=== PATIENT | female | born 1970 | race Caucasian/White ===

== ENCOUNTER 2016-11-02 13:29 | Emergency (ER) ==
[2016-11-02 13:45] VITALS: BP 165/103
[2016-11-02] MEDS ORDERED: ASPIRIN PO STA (13:45)
[2016-11-02 13:53] LABS: MANUAL DIFF NEEDED? NO
[2016-11-02 14:07] LABS: BASO% 0.3 % (0.0-0.8); EOS% 2.6 % (0.0-10.0); HEMATOCRIT 38.6 % (37.0-47.0); HEMOGLOBIN 12.9 g/dL (12.0-16.0); IMM GRAN# 0.03 X1000 (0.0-0.04); IMM GRAN% 0.3 % (0.0-0.5); LYMPH# 3.52 X1000 (1.2-3.4); MCH 30.6 PG (27-31); MCHC 33.4 g/dL (33-37); MCV 91.7 FL (81-99); MPV 10.3 FL (7.4-10.4); NEUT% 58.8 % (42.2-75.2); PLT 279 X1000 (130-400); RBC 4.21 XMIL (4.2-5.4)
[2016-11-02 14:17] LABS: INR 0.93; PROTIME 9.8 Seconds (9.2-11.7); PTT 26.1 Seconds (22.0-36.0)
--- NOTE | 2016-11-02 14:26 | ED EKG INTERP ---
EKG Interpretation - EKG Time of EKG reading by physician:: 13:45 EKG Read and Signed by:: Javy Hwang EKG Interpretation (*Must complete 3 of following elements*): Abnormal Rate: 75 (nonspecific ST abnormality) Rhythm: NSR Attestation - Scribe Verification/Attestation Scribe:: Regina Vergara Acting as Scribe for:: Javy Hwang Scribe documention review:: This chart was documented by a scribe and accurately reflects the service the provider performed and the decisions made by the provider.
[2016-11-02 14:30] LABS: AGAP 13; ALBUMIN 3.9 g/dL (3.5-5.0); ALKALINE PHOSPHATASE 75 U/L (32-104); BUN 9 mg/dL (8-22); CALCIUM 10.1 mg/dL (8.8-10.2); CHLORIDE 99 mmol/L (98-107); COSMO 277; GOT 22 U/L (10-30); GPT 20 U/L (10-36); MAGNESIUM 1.9 mg/dL (1.5-2.7); POTASSIUM 3.5 mmol/L (3.5-5.1); SODIUM 139 mmol/L (136-145); TCO2 27 mmol/L (25-35); TOTAL BILIRUBIN 0.32 mg/dL (0.20-1.00); TOTAL PROTEIN 7.1 g/dL (6.3-8.3)
--- NOTE | 2016-11-02 14:30 | Diag Imaging Result Document ---
PROCEDURE NAME: CHEST-2 VIEWS - 11/02/2016 TWO VIEWS OF THE CHEST: FINDINGS: There is no evidence of acute cardiac or pulmonary disease. Compared to 02/29/2016, there has been no significant change in the appearance of the chest. IMPRESSION: No evidence of acute disease.
[2016-11-02 14:33] LABS: CK PROFILE 259 U/L (24-173)
[2016-11-02 14:55] LABS: CK INDEX 0.8 (0.0-2.5); CK-MB 1.98 ng/mL (0.0-5.0)
--- NOTE | 2016-11-04 07:59 | EKG Report ---
Test Performed on : 11/02/2016 1:39:04 PM Test Reason : re-ordered/unable to attach previous order Blood Pressure : / mmHG Vent. Rate : 075 BPM Atrial Rate : 075 BPM P-R Int : 136 ms QRS Dur : 082 ms QT Int : 388 ms P-R-T Axes : 045 068 070 degrees QTc Int : 433 ms Normal sinus rhythm. Nonspecific ST abnormality Abnormal ECG When compared with ECG of 29-FEB-2016 12:54, No significant change was found Unconfirmed Result
--- NOTE | 2016-11-04 08:24 | EKG Report ---
Test Performed on : 11/02/2016 4:19:23 PM Test Reason : Chest Pain Blood Pressure : / mmHG Vent. Rate : 072 BPM Atrial Rate : 072 BPM P-R Int : 136 ms QRS Dur : 070 ms QT Int : 386 ms P-R-T Axes : 060 063 079 degrees QTc Int : 422 ms Normal sinus rhythm. Low voltage QRS Nonspecific ST abnormality Abnormal ECG When compared with ECG of 02-NOV-2016 13:39, (Unconfirmed) No significant change was found Unconfirmed Result
== END 2016-11-02 16:10 | disposition left against medical advice (07) ==
LOC: ED 13:29
DX: R07.89 Other chest pain (principal); M79.601 Pain in right arm; R94.31 Abnormal electrocardiogram [ECG] [EKG]
CPT/HCPCS: 71020; 80053; 82550; 82553; 83735; 83880; 84484; 85025; 85379; 85610; 85730; 93005

== ENCOUNTER 2016-11-02 16:20 | Observation (INO) ==
[2016-11-02] MEDS ORDERED: PHENERGAN ONE (16:33)
--- NOTE | 2016-11-02 16:33 | PROVIDER DOCUMENTATION ---
Addendum entered and electronically signed by Linda Alberto Scribe 19:48: Additional Progress - ADDITIONAL XRAY's XRAY Study: Chest Impression: Normal Xray Interpretation: No acute disease per radiologist Original Note: HPI-Chest Pain - General Source: patient - History of Present Illness-CP Location: reports: epigastric Chest Pain Radiation: reports: arms Quality of Pain: reports: sharp Onset/Duration: this morning Associated Symptoms: reports: denies symptoms Prior Chest Pain/Cardiac Workup: reports: stress test <Chayito Washington - Last Filed: 11/02/16 17:59> - General Source: patient (Patient is a 46 year old white female with history of hyperlipidemia, tobacco abuse, and strong family history of VA (mother with VA in her 30's), who presents by EMS complaining of substernal chest pain "knot" since 12 noon today. Patient initially seen by Dr. Mcnulty who gave patient 4 baby aspirin. Patient reports that her chest pain was initially relieved with SL nitroglycerin. Chest pain is currently 2/10 with radiation to both arms. Initial troponin is negative and EKG shows no ischemic changes.) <Hiram Carmen - Last Filed: 11/02/16 18:19> - General Chief Complaint: Chest Pain Stated Complaint: chest Time Seen by Provider: 11/02/16 16:33 Allergies/Adverse Reactions: Patient Allergies Allergy/AdvReac Type Severity Reaction Status Date / Time Egg Derived Allergy VOMITING Verified 11/02/16 16:27 ciprofloxacin [From Cipro] AdvReac VOMITING Verified 11/02/16 16:27 ciprofloxacin HCl * AdvReac VOMITING Verified 11/02/16 16:27 [From Cipro] clarithromycin [From Biaxin] AdvReac VOMITING Verified 11/02/16 16:27 codeine AdvReac VOMITING Verified 11/02/16 16:27 hydrocodone AdvReac VOMITING Verified 11/02/16 16:27 levofloxacin [From Levaquin] AdvReac VOMITING Verified 11/02/16 16:27 Penicillins AdvReac VOMITING Verified 11/02/16 16:27 Sulfa (Sulfonamide AdvReac VOMITING Verified 11/02/16 16:27 Antibiotics) Home Medications: Home Medication List Medication Instructions Recorded Confirmed Last Taken Type Cephalexin [Keflex] 500 mg PO BID 06/05/07/16 05/07/16 History Levothyroxine [Synthroid] 50 microgm PO DAILY 02/29/16 05/07/16 1 Day Ago History Clindamycin HCl 300 mg PO Q8HR #28 capsule 05/07/16 Unknown Rx Metronidazole [Flagyl] 500 mg PO TID #20 tablet 05/07/16 Unknown Rx Promethazine [Phenergan] 1 - 2 tab PO Q6H PRN PRN #18 tablet 05/07/16 Unknown Rx Tramadol [Ultram] 50 mg PO Q6H PRN PRN #30 tablet 05/07/16 Unknown Rx - History of Present Illness-CP Nature of Presenting Problem: 46 yo F presents to the ER with complaint of chest pain, epigastric that radiates to her bilat arms. Had a similar pain yesterday. Has been seen at the heart center and was seen at [facility] today. Has a family hx of heart disease. Has had an echo and GXT done last year and had "normal" results. Has a hx of similar pain, states no triggers or relievers of the pain. (Chayito Washington) Review of Systems - Adult - REVIEW OF SYSTEMS - ADULT Constitutional: denies: chills, fever Eyes: reports: no symptoms reported Ears, Nose, Mouth & Throat: reports: no symptoms reported Cardiovascular: reports: chest pain. denies: palpitations Respiratory: denies: cough, shortness of breath Gastrointestinal: denies: diarrhea, nausea, vomiting Genitourinary: reports: no symptoms reported Musculoskeletal: reports: no symptoms reported Integumentary: reports: no symptoms reported Neurological: reports: no symptoms reported Psychiatric: reports: no symptoms reported Endocrine: reports: no symptoms reported Hematologic/Lymphatic: reports: no symptoms reported Allergic/Immunologic: reports: no symptoms reported All Other Systems: Reviewed and Negative <Chayito Washington - Last Filed: 11/02/16 17:59> Past History - Adult - PAST MEDICAL HISTORY-ADULT Review of Records: reports: Nursing Assessment Review, Medications Reviewed Major Childhood Illnesses: reports: denies history Gastrointestinal: reports: GERD Musculoskeletal: reports: arthritis (gout) Endocrine/Immune: reports: thyroid disorder - PRIOR SURGERIES/PROCEDURES Surgical/Procedure History: reports: cholecystectomy, hysterectomy, BTL, other ( left breast) - IMMUNIZATION STATUS Childhood Immunizations: See Nurse Assessment Flu Vaccine: See Nurse Assessment - FAMILY HISTORY Family History: CAD under 55yo - SOCIAL HISTORY Smoking: cigarettes Provider spent 3-5 mins advising pt. on dangers of tobacco.: Discussed manners to quit use, and f/u contacts for add'l counseling. <Chayito Washington - Last Filed: 11/02/16 17:59> Physical Exam-General - PHYSICAL EXAM-ADULT Initial Vital Signs Reviewed: Yes - CONSTITUTIONAL General Appearance: alert, no apparent distress - EYES Eyes: PERRL/EOMI, pink conjunctivae - HEAD, EARS, NOSE, MOUTH & THROAT HENMT: normocephalic/atraumatic, normal ENT inspection - NECK Neck: supple, normal inspection - RESPIRATORY Respiratory: no respiratory distress, no accessory muscle use - CARDIOVASCULAR Cardiovascular: normal peripheral pulses, regular rate, rhythm - MUSCULOSKELETAL Back Exam: no CVA tenderness, no vertebral tenderness Extremity: normal gait, normal inspection - SKIN Integumentary: normal color, warm/dry - NEUROLOGIC Neurologic: grossly normal, no motor/sensory deficits - PSYCHIATRIC Psych/Mental Status: normal mood/affect, normal thought content, normal thought process, oriented x 3 <PadminiChayito - Last Filed: 11/02/16 17:59> Progress - EKG 1 Time of EKG reading by physician:: 16:19 EKG Read and Signed by:: Hussein Bower EKG Interpretation (*Must complete 3 of following elements*): Abnormal Rate: 72 Rhythm: normal sinus rhythm Somers: normal QRS: other (low voltage) IA Interval: normal ST Wave: non-specific ST changes - CHANGE OF SHIFT REPORT (ED Provider) Report Given and Care Transferred to:: Dr. Carmen Time of Transfer: 17:59 Items Pending: Labs, XRAY Results <Chayito Washington - Last Filed: 11/02/16 17:59> - EKG 1 Time of EKG reading by physician:: 16:19 EKG Read and Signed by:: Hussein Bower Rate: 72 Somers: normal QRS: other (low voltage) IA Interval: normal ST Wave: normal Prior EKG Comparison: no prior EKG - CONSULTS/PCP/HOSPITALIST Notification #1 *Consult/PCP/Hospitalist*: [address] Time Discussed: 18:10 Consult Disposition: Admit <Cook,Hiram A. - Last Filed: 11/02/16 18:19> Departure <Chayito Washington - Last Filed: 11/02/16 17:59> - Departure Time of Disposition Order: 18:10 Certified Medical Emergency: Emergent <Hiram Carmen - Last Filed: 11/02/16 18:19> - Departure DIAGNOSIS: Chest pain Qualifiers: Chest pain type: chest pain due to myocardial ischemia Ischemic chest pain type : unspecified angina pectoris type Qualified Code(s): I20.9 - Angina pectoris, unspecified Disposition: ADMITTED INPATIENT 09 Condition: Stable Referrals: None,PCP [Primary Care Provider] - Attestation - Scribe Verification/Attestation Scribe:: Chayito Washington Acting as Scribe for:: Hussein Bower Scribe documention review:: This chart was documented by a scribe and accurately reflects the service the provider performed and the decisions made by the provider. <Chayito Washington - Last Filed: 11/02/16 17:59> Physician Attestation
[2016-11-02 17:49] LABS: CK INDEX 0.8 (0.0-2.5); CK-MB 1.93 ng/mL (0.0-5.0)
[2016-11-02 18:15] LABS: MANUAL DIFF NEEDED? NO
[2016-11-02 18:16] LABS: BASO% 0.4 % (0.0-0.8); EOS# 0.31 X1000 (0.0-0.7); EOS% 2.4 % (0.0-10.0); HEMOGLOBIN 12.7 g/dL (12.0-16.0); IMM GRAN# 0.04 X1000 (0.0-0.04); IMM GRAN% 0.3 % (0.0-0.5); LYMPH% 37.1 % (20.5-51.1); MCH 30.4 PG (27-31); MCHC 33.4 g/dL (33-37); MCV 90.9 FL (81-99); MONO% 7.7 % (1.7-9.3); MPV 10.7 FL (7.4-10.4); NEUT% 52.1 % (42.2-75.2); PLT 278 X1000 (130-400); RBC 4.18 XMIL (4.2-5.4)
[2016-11-02] MEDS: NITROGLYCERIN TOP ONE ×2 (18:18)
[2016-11-02 18:23] LABS: AGAP 11; BUN 9 mg/dL (8-22); CALCIUM 10.5 mg/dL (8.8-10.2); CHLORIDE 98 mmol/L (98-107); COSMO 271; POTASSIUM 3.2 mmol/L (3.5-5.1); SODIUM 136 mmol/L (136-145); TCO2 27 mmol/L (25-35)
[2016-11-02 18:37] LABS: INR 0.9 (0.86-1.15); PROTIME 12.5 Seconds (12.1-15.5)
[2016-11-02 18:38] LABS: PTT PL 27.7 Seconds (22.6-43.9)
[2016-11-02] MEDS ORDERED: SODIUM CHLORIDE 0.9% INJ ONE (20:07)
[2016-11-02] MEDS ORDERED: PHENERGAN IV ONE (20:07)
[2016-11-02] MEDS ORDERED: ULTRAM PO PRN (21:22)
[2016-11-02] MEDS ORDERED: NITROGLYCERIN TOP PRN (21:23)
[2016-11-02 22:05] LABS: CK-MB 3.8 ng/mL (0.0-5.0)
[2016-11-03 05:48] LABS: CK INDEX 4.7 (0.0-2.5); CK-MB 8.24 ng/mL (0.0-5.0)
[2016-11-03] MEDS ORDERED: SYNTHROID PO SCH (09:00)
[2016-11-03] MEDS ORDERED: ZYLOPRIM PO SCH (09:00)
[2016-11-03] MEDS ORDERED: LOVENOX SUBQ ONE (15:03)
--- NOTE | 2016-11-03 15:07 | HISTORY AND PHYSICAL ---
CHIEF COMPLAINT: Chest pain. HISTORY OF PRESENT ILLNESS: Patient is a 46-year-old female, who notes that she has an extensive family history of heart disease. States that she has had multiple family members with heart disease, including her mom who at age 52 suddenly from a heart attack sitting at the kitchen table. Patient notes that she has been having chest pain and symptoms off and on for the past year. However, it appears that her last episode was approximately a year ago, at which time she notes that she went to see a heart doctor and had a stress test. Stress test was normal and she was told she did not need heart catheterization. Patient states that did not sit well with her and that she feels that she needs a heart catheterization given her family history and does not understand why one would just would not be done. Today symptoms are somewhat difficult to follow. Patient notes that she was at home, started having some chest pain, and doubled over in pain and pointing to her epigastric region as to the area of the pain. States that she went to [facility]'s ER and was not being seen quick enough; therefore, she went home and called an ambulance. At that point, the ambulance brought her to [facility]. Patient notes the pain was midsternal, felt as though something was sitting on her chest. She could not get a deep breath. Denies any palpitations. Denies any radiation of the pain. Denies any nausea or vomiting with the pain. Does note; however, the pain was relieved overnight with nitroglycerin and that she is currently having no symptoms at all. ALLERGIES: Eggs, Cipro, Biaxin, hydrocodone, Levaquin, penicillin, sulfa, all of which she notes causes vomiting. CURRENT MEDICATIONS: Synthroid 50 and tramadol 50 p.r.n. PAST MEDICAL HISTORY: History of chronic reflux, arthritis. FAMILY HISTORY: Multiple family members with coronary artery disease. SOCIAL HISTORY: The patient has a long extensive history of smoking, as well as with her . She is . She notes that she has attempted to stop; however, she has switched to an E- cigarette and is trying to cut that down as well. PHYSICAL EXAMINATION: VITAL SIGNS: Temperature 98 degrees, respiratory 17, blood pressure 98/49 to 112/72. Sat 90% on room air. GENERAL: Patient well developed, obese female, who is currently in no respiratory distress. She is awake, alert, and oriented. NECK: Supple. CARDIOVASCULAR: Regular rate. CHEST: Relatively clear. ABDOMEN: Soft, nondistended. EXTREMITIES: Moves all extremities. NEUROLOGIC: No changes. Warm and dry. No rashes. LABORATORY DATA: WBC is 12, otherwise CBC normal. CMP normal. Potassium 3.2. Calcium 10.5. CPK 175. MB 8.24. Troponin 0.092 and 0.105. ASSESSMENT: 1. Chest pain. 2. Chronic tobacco abuse. 3. Known family history. 4. Elevated troponin's. 5. Leukocytosis of undetermined significance. PLAN: We will admit patient to the hospital. Replace her potassium. We will consult Cardiology. Discussed with Dr. Arteaga her current care. Patient certainly will need to have further workup. This may not have to her occur while she is in the hospital, as her symptoms have resolved. We will continue to follow.
[2016-11-03] MEDS ORDERED: LOPRESSOR PO SCH (15:15)
[2016-11-03] MEDS ORDERED: ASPIRIN PO SCH (15:15)
--- NOTE | 2016-11-03 15:28 | CONSULTATION ---
DATE OF CONSULTATION: 11/03/2016 INDICATION FOR THE CONSULTATION: Non-ST elevation IL. HISTORY OF PRESENT ILLNESS: Ms. Nicolas is a 46-year-old white female with a history of hyperlipidemia who presented for complaints of chest pain. This apparently began yesterday and occurred in the setting of a seated position. She said it occurred around 11 o'clock when she was watching TV. It was described as a tightness in the lower sternal area with some radiation over to the left and right side of her chest. There was no nausea, vomiting or diaphoresis. Episodes would last for around 5 minutes or so. There was no exertional component to it at the time. Episodes continued to occur sporadically throughout the day. She subsequently presented to the ER and was evaluated. EKG was unremarkable. She did have enzymes that eventually trended to positive of 0.105 with an MB fraction of 8.2. She reports that she has had a stress test previously that was unremarkable. I am unclear exactly where that study was done as we do not have that present in our system. PAST MEDICAL HISTORY: Reportedly positive for hyperlipidemia. She is supposed to be on some form of a statin therapy but may have had liver issues with it previously. She is currently taking fish oil. SOCIAL HISTORY: She has a history of tobacco use. She quit around 3-4 months ago. FAMILY HISTORY: She has a history of coronary disease at an early age in her mother. She was taken care of by Dr. Ayers in [place]. REVIEW OF SYSTEMS: A 10-system review of systems is negative except for those things mentioned in HPI. PHYSICAL EXAMINATION: Vital signs: She is afebrile. Her heart rate is 81, blood pressure is 119/87. General: She is in no acute distress. She is pleasant. HEENT: Oropharynx is moist. Normal dentition. Her eye examination shows pink conjunctivae. White sclerae. Neck: Examination shows no obvious thyromegaly or thyroid tenderness. Cardiovascular: She is in a regular rate and rhythm. She has no obvious murmurs. There is no S3 present. She has no lower extremity edema. Chest: Clear bilaterally. She has no increased work of breathing. Abdomen: Soft, nontender, nondistended. She has no obvious organomegaly. Skin Exam: Warm and dry throughout any rashes. Neurological: She is moving all extremities well. Cranial nerves 2-12 are intact without any sensation deficits. Psychiatric: She is alert, oriented, pleasant. She has normal mood and affect. PERTINENT DATA: Her EKG shows sinus rhythm, rate of 72 beats per minute. No signs of ischemic changes. No signs of previous infarct. Her chest x-ray shows no evidence of any acute findings. Her laboratory data shows a white count of 12.9, hematocrit is 38, her platelet count is 278,000. Her INR is 0.9. Her D-dimer was normal. Her sodium is 136, potassium 3.2, her BUN is 9, creatinine 0.9. Her troponin initial was negative at less than 0.010. She subsequently trended positive to 0.093 to a peak of 0.105. Her MB fraction most recently was 8.2, her albumin 3.9. She has had no lipids checked. ASSESSMENT: Suggestion of a non-ST elevation myocardial infarction. PLAN: We will dose her with aspirin. She received some aspirin on presentation on the . I will dose her again today. I will give her 1 dose of Lovenox. She had nitroglycerin paste initially placed on presentation. Currently her blood pressure is 119/87. I will check her lipids. I have called for transfer over to [facility] and they have agreed to accept her. They think that bed availability will allow her to be transferred over today. I believe she is an appropriate candidate for cardiac catheterization to delineate her coronary anatomy. Risks, benefits and alternatives explained to the patient. She agrees to proceed with that.
[2016-11-03 16:02] VITALS: BP 122/85
--- NOTE | 2016-11-04 07:00 | DISCHARGE SUMMARY ---
ADMISSION DATE: 11/02/2016 DISCHARGE DATE: 11/03/2016 DIAGNOSES: 1. Non ST-elevation myocardial infarction. 2. Chest pain. 3. Chronic tobacco abuse. 4. Leukocytosis. 5. Known family history. HOSPITAL COURSE: Ms. Nicolas presented to, it looks like [facility] ER, was triaged, had labs drawn but felt she was not being seen quick enough. Therefore she left, went home, called an ambulance and was taken to [facility]. She was evaluated having a negative troponin at [facility] as well as [facility], but she was admitted for further evaluation. Both were negative. She was subsequently admitted. Troponins were trended. At 8 p.m. she had a troponin of 0.093; at 11:00, 0.092; and at 3:45 a.m. 0.105 with elevations in her CK-MB to 8.24. A total CPK of 175. Her pain was relieved with nitroglycerin ointment, and it did not return while in the hospital. She was evaluated by Dr. Salvador Arteaga in Cardiology who arranged transferred to [facility] for cardiac cath and further evaluation. DISCHARGE PHYSICAL ASSESSMENT: Cardiovascular: Regular rate and rhythm. S1 and S2 appreciated. Pulmonary: Breath sounds are clear with no increased work of breathing noted. Gastrointestinal: Abdomen is soft, nontender, nondistended. Bowel sounds in all 4 quadrants. Extremities: No clubbing, cyanosis, or edema. Calves nontender. Pulses are palpable x4. Neurologic: She is alert and oriented x3. PHYSICAL EXAMINATION: Vital Signs: Blood pressure is 122/85 with a heart rate of 81, respirations 18, temperature 98.3 degrees oral with room air saturations 100%. DISCHARGE MEDICATIONS: Will be per Cardiology. She is being discharged from [facility], transferred to [facility] via EMS as arranged per Dr. Salvador Arteaga, Cardiology. She is in stable condition. She is pain-free at present. Dictated by THUAN Aceves for Candelario Strete MD
== END 2016-11-03 16:35 | disposition short-term general hospital (02) ==
LOC: P.ED 16:20 → P.MEDSURG 18:28
PROVIDERS: ATTEND Internal Medicine
DX: I21.4 Non-ST elevation (NSTEMI) myocardial infarction (principal); R07.89 Other chest pain; E78.5 Hyperlipidemia, unspecified; F17.210 Nicotine dependence, cigarettes, uncomplicated; Z82.49 Family history of ischemic heart disease and other diseases of the circulatory system; M79.602 Pain in left arm; M79.601 Pain in right arm; K21.9 Gastro-esophageal reflux disease without esophagitis; M19.90 Unspecified osteoarthritis, unspecified site; E07.9 Disorder of thyroid, unspecified; Z71.6 Tobacco abuse counseling; E66.9 Obesity, unspecified; R74.8 Abnormal levels of other serum enzymes; D72.829 Elevated white blood cell count, unspecified; M10.9 Gout, unspecified; Z79.899 Other long term (current) drug therapy
CPT/HCPCS: 80048; 82550; 82553; 83735; 84484; 85025; 85379; 85610; 85730; 93005; 94761; 96374; 96376; J1650; J2550

== ENCOUNTER 2017-04-28 19:24 | Inpatient (IN) ==
[2017-04-28] MEDS ORDERED: NS 1,000 ML IV ONE (20:37)
[2017-04-28] MEDS ORDERED: ZOFRAN IV ONE (20:37)
--- NOTE | 2017-04-28 21:25 | Diag Imaging Result Doc PS360 ---
EXAM: FLAT/UPRIGHT ABD/1 VIEW CHEST HISTORY: vomiting TECHNIQUE: Three views COMPARISON: 11/02/2016 FINDINGS: There are sternal wires on the current exam. The lungs are well expanded. No cardiomegaly. No pneumonia. No free air beneath the diaphragm. The gallbladder has been removed. No bowel obstruction. No organomegaly. There are multiple pelvic phleboliths. IMPRESSION: No acute abnormality. Electronically signed by Rick Villarreal 04/28/2017 9:22 PM
[2017-04-28 21:43] LABS: MANUAL DIFF NEEDED? NO
[2017-04-28 21:50] LABS: BASO% 0.3 % (0.0-0.8); EOS# 0.17 X1000 (0.0-0.7); EOS% 1.8 % (0.0-10.0); HEMATOCRIT 38.1 % (37.0-47.0); HEMOGLOBIN 12.8 g/dL (12.0-16.0); IMM GRAN# 0.02 X1000 (0.0-0.04); IMM GRAN% 0.2 % (0.0-0.5); LYMPH# 3.49 X1000 (1.2-3.4); LYMPH% 35.9 % (20.5-51.1); MCH 28.8 PG (27-31); MCHC 33.6 g/dL (33-37); MCV 85.6 FL (81-99); MONO# 0.57 X1000 (0.11-0.59); MONO% 5.9 % (1.7-9.3); MPV 10.3 FL (7.4-10.4); NEUT% 55.9 % (42.2-75.2); PLT 285 X1000 (130-400); RBC 4.45 XMIL (4.2-5.4)
[2017-04-28 22:08] LABS: URINE CULTURE NEEDED? NO; URINE SOURCE CLEAN CATCH
[2017-04-28 22:09] LABS: URINE MICRO REVIEW NEEDED? NO
[2017-04-28 22:10] LABS: AGAP 12; ALBUMIN 4.3 g/dL (3.5-5.0); ALKALINE PHOSPHATASE 81 U/L (32-104); AMYLASE 21 U/L (20-200); BUN 7 mg/dL (8-22); CALCIUM 9.7 mg/dL (8.8-10.2); CHLORIDE 103 mmol/L (98-107); COSMO 284; GOT 18 U/L (10-30); GPT 12 U/L (10-36); LIPASE 15 U/L (13-60); POTASSIUM 4.1 mmol/L (3.5-5.1); SODIUM 144 mmol/L (136-145); TCO2 29 mmol/L (25-35); TOTAL BILIRUBIN 0.36 mg/dL (0.20-1.00); TOTAL PROTEIN 7.2 g/dL (6.3-8.3)
[2017-04-28 22:15] LABS: BILIRUBIN URINE NEGATIVE (NEGATIVE); BLOOD URINE NEGATIVE (NEGATIVE); COLOR YELLOW; GLUCOSE URINE NEGATIVE (NEGATIVE); LEUKOCYTES URINE NEGATIVE (NEGATIVE); NITRITE URINE NEGATIVE (NEGATIVE); PROTEIN URINE TRACE mg/dL (NEGATIVE); SP GRAVITY URINE 1.019; TURBIDITY URINE CLEAR (CLEAR); UROBILINOGEN URINE NORMAL (NORMAL)
[2017-04-28 22:18] LABS: UR EPITHELIAL CELLS >10 /HPF (<10); URINE BACTERIA 1+ /HPF; URINE RBC <10 /HPF (<10); URINE WBC <10 /HPF (<10)
--- NOTE | 2017-04-29 01:53 | PROVIDER DOCUMENTATION ---
This chart was entered by Sissy Dominguez Scribe, acting as scribe for Osmel Michel MD. HPI-Abdominal Pain/GI Problem - General Chief Complaint: Abdominal Pain Stated Complaint: "BLOACKAGE" Time Seen by Provider: 04/28/17 20:36 Source: patient Allergies/Adverse Reactions: Patient Allergies Allergy/AdvReac Type Severity Reaction Status Date / Time Egg Derived Allergy VOMITING Verified 04/28/17 23:14 ciprofloxacin [From Cipro] AdvReac VOMITING Verified 04/28/17 23:14 ciprofloxacin HCl * AdvReac VOMITING Verified 04/28/17 23:14 [From Cipro] clarithromycin [From Biaxin] AdvReac VOMITING Verified 04/28/17 23:14 codeine AdvReac VOMITING Verified 04/28/17 23:14 hydrocodone AdvReac VOMITING Verified 04/28/17 23:14 levofloxacin [From Levaquin] AdvReac VOMITING Verified 04/28/17 23:14 Penicillins AdvReac VOMITING Verified 04/28/17 23:14 Sulfa (Sulfonamide AdvReac VOMITING Verified 04/28/17 23:14 Antibiotics) Home Medications: Home Medication List Medication Instructions Recorded Confirmed Last Taken Type Levothyroxine [Synthroid] 75 microgm PO DAILY 02/29/16 04/28/17 1 Day Ago History Promethazine [Phenergan] 1 - 2 tab PO Q6H PRN PRN #18 tablet 05/07/16 04/28/17 11/02/16 Rx Allopurinol 600 mg PO DAILY 11/02/16 04/28/17 11/02/16 History Aspirin EC 325 mg PO DAILY 04/28/17 04/28/17 Unknown History Atorvastatin Calcium [Lipitor] 40 mg PO QHS 04/28/17 04/28/17 Unknown History Cetirizine HCl [Zyrtec] 10 mg PO DAILY 04/28/17 04/28/17 Unknown History Cholecalciferol (Vitamin D3) 2,000 unit PO DAILY 04/28/17 04/28/17 Unknown History [Vitamin D3] Clonazepam [Klonopin] 0.5 mg PO DAILY PRN PRN 04/28/17 04/28/17 Unknown History Clopidogrel Bisulfate [Plavix] 75 mg PO DAILY 04/28/17 04/28/17 Unknown History Cyanocobalamin (Vitamin B-12) 5,000 mcg SL DAILY 04/28/17 04/28/17 Unknown History [Vitamin B-12] Tramadol HCl [Ultram] 50 mg PO Q6H PRN PRN 04/28/17 04/28/17 Unknown History - History of Present Illness-ABD Nature of Presenting Problems: 47 Y/O F presents to ER with the complain of vomit/nausea for X4 weeks. pt states that she is not been able to have any bowel movement and is been drinking a lot of laxatives. pt has complain of possible SBO and states that she was sent by Dr Mccarty. Abdominal Pain Onset Location: reports: generalized abdomen Severity in ED: reports: mild Onset/Duration: reports: other (1 month) Timing: reports: still present Modifying Factors: improves with: nothing Associated Symptoms: reports: nausea, vomiting Last BM: other (at the ER) Review of Systems - Adult - REVIEW OF SYSTEMS - ADULT Constitutional: reports: no symptoms reported Eyes: reports: no symptoms reported Ears, Nose, Mouth & Throat: reports: no symptoms reported Cardiovascular: reports: no symptoms reported Respiratory: reports: no symptoms reported Gastrointestinal: reports: abdominal pain, nausea, vomiting. denies: diarrhea Genitourinary: reports: no symptoms reported Musculoskeletal: reports: no symptoms reported Integumentary: reports: no symptoms reported Neurological: reports: no symptoms reported Psychiatric: reports: no symptoms reported Endocrine: reports: no symptoms reported Hematologic/Lymphatic: reports: no symptoms reported Allergic/Immunologic: reports: no symptoms reported All Other Systems: Reviewed and Negative Past History - Adult - PAST MEDICAL HISTORY-ADULT Review of Records: reports: Old Records Reviewed, Nursing Assessment Review Major Childhood Illnesses: reports: denies history Gastrointestinal: reports: GERD Musculoskeletal: reports: arthritis (gout) Endocrine/Immune: reports: thyroid disorder - PRIOR SURGERIES/PROCEDURES Surgical/Procedure History: reports: cholecystectomy, hysterectomy, BTL, other ( left breast) - IMMUNIZATION STATUS Childhood Immunizations: See Nurse Assessment Flu Vaccine: See Nurse Assessment - FAMILY HISTORY Family History: CAD under 55yo - SOCIAL HISTORY Smoking: cigarettes Provider spent 3-5 mins advising pt. on dangers of tobacco.: Discussed manners to quit use, and f/u contacts for add'l counseling. Physical Exam-General - PHYSICAL EXAM-ADULT Initial Vital Signs Reviewed: Yes - CONSTITUTIONAL General Appearance: appears well, alert - EYES Eyes: PERRL/EOMI, pink conjunctivae - HEAD, EARS, NOSE, MOUTH & THROAT HENMT: moist mucous membranes, normal ENT inspection, TMs normal - NECK Neck: non-tender, full range of motion, supple - RESPIRATORY Respiratory: chest non-tender, lungs clear, normal breath sounds - GASTROINTESTINAL (ABDOMEN) Abdominal Exam: soft, tenderness (RUQ). negative: distended, guarding - MUSCULOSKELETAL Back Exam: normal inspection, no CVA tenderness, no vertebral tenderness Extremity: normal range of motion, non-tender, normal gait - SKIN Integumentary: normal color, normal turgor, warm/dry - NEUROLOGIC Neurologic: grossly normal, no motor/sensory deficits - PSYCHIATRIC Psych/Mental Status: normal mood/affect, normal thought content, normal thought process, oriented x 3 Progress - PLAN OF CARE/RESULTS Progress/Plan/Lab Results: Vital Signs - 8 hr 04/28/17 19:41 Temperature 98.3 F Pulse Rate 84 Respiratory Rate 15 Blood Pressure 122/83 O2 Sat by Pulse Oximetry 100 Laboratory Results - last 24 hr 04/28/17 04/28/17 04/28/17 21:17 21:17 21:48 WBC 9.71 RBC 4.45 Hgb 12.8 Hct 38.1 MCV 85.6 MCH 28.8 MCHC 33.6 RDW Std Deviation 14.9 H Plt Count 285 MPV 10.3 Immature Gran % (Auto) 0.2 Neut % (Auto) 55.9 Lymph % (Auto) 35.9 [place] % (Auto) 5.9 Eos % (Auto) 1.8 Baso % (Auto) 0.3 Immature Gran # (Auto) 0.02 Neut # (Auto) 5.43 Lymph # (Auto) 3.49 H [place] # (Auto) 0.57 Eos # (Auto) 0.17 Baso # (Auto) 0.03 Sodium 144 Potassium 4.1 Chloride 103 Carbon Dioxide 29 Anion Gap 12 BUN 7 L Creatinine 0.7 Estimated GFR/1.73 m2 > 60 BUN/Creatinine Ratio 10 Glucose 85 Calculated Osmolality 284 Calcium 9.7 Total Bilirubin 0.36 AST 18 ALT 12 Alkaline Phosphatase 81 Total Protein 7.2 Albumin 4.3 Globulin 2.9 Albumin/Globulin Ratio 1.5 Amylase 21 Lipase 15 Urine Source CLEAN CATCH Urine Color YELLOW Urine Turbidity CLEAR Urine pH 7.0 Ur Specific Bernard 1.019 Urine Protein TRACE A Ur Glucose (Stick) NEGATIVE Ur Ketones (Stick) NEGATIVE Urine Blood NEGATIVE Urine Nitrite NEGATIVE Urine Bilirubin NEGATIVE Urobilinogen Dipstick NORMAL Urine Leukocytes NEGATIVE Urine WBC (Auto) <10 Urine RBC (Auto) <10 U Epithel Cells (Auto) >10 A Urine Bacteria (Auto) 1+ Orders Category Date Time Status Saline Loc DIRECTED Care 04/28/17 19:45 Active NPO Diet 04/28/17 19:45 Active FLAT/UPRIGHT ABD/1 VIEW CHEST [RAD] Stat Exams 04/28/17 20:37 Completed AMYLASE [CHEM] Stat Lab 04/28/17 21:17 Completed CBC WITH ELECTRONIC DIFF [HEME] Stat Lab 04/28/17 21:17 Completed COMPREHENSIVE METABOLIC PANEL [CHEM] Stat Lab 04/28/17 21:17 Completed LIPASE [CHEM] Stat Lab 04/28/17 21:17 Completed URINALYSIS W/POSS RFLX CULT-1 [URINALYSIS] Stat Lab 04/28/17 21:48 Completed 0.9% Sodium Chloride Inj [Ns] 1,000 ml Med 04/28/17 20:37 Discontinued IV 999 mls/hr Ondansetron [Zofran] Med 04/28/17 20:37 Discontinued 4 mg IV NOW ONE Result Diagrams: 04/28/17 21:17 04/28/17 21:17 - REASSESSMENT Reassessment #1 Time Reassessed: 01:49 (from the first encounter until now pt has remained very upset venting about prior encounters with other providers and generally very upset. Will offer to have pt stay so Dr Mccarty her travel freight and passenger agent, who pt relates is convinced she has a terrible narrowinging of her colon can consult on her on the morning) Status: unchanged - XRAY 1 XRAY Study: Abdomen Impression: Normal XRAY Interpretation: no acute abnormailty by radiologist - CT/MRI 1 CT Study: Abdomen, Pelvis Impression: See EMR Report CT Results: splenomegaly, fluid through the colon, no dilation by radiologist Departure - Departure Date of Disposition Decision: 04/29/17 Time of Disposition Decision: 01:51 DIAGNOSIS: Abdominal pain Qualifiers: Abdominal location: generalized Qualified Code(s): R10.84 - Generalized abdominal pain Disposition: ADMITTED INPATIENT 09 Certified Medical Emergency: Emergent Condition: Good Referrals and Follow-Ups: Paz Rod [Primary Care Provider] - - Critical Care Note This patient required my direct & personal management of CC.: No Attestation - Physician/ MISSY Attestation Patient care was provided by Advanced Practice Provider:: No The physician spent face to face time with patient:: Yes Advanced Practice Provider documentation review:: Supervising physician onsite and consulted in the evaluation and care of this patient. The physician did have a face to face encounter with the patient. This chart was documented by the indicated scribe, (Sissy Dominguez Scribe) and accurately reflects the services I performed and decisions made by me, Osmel Michel MD, as attested by the provider's signature.
[2017-04-29] MEDS ORDERED: KLONOPIN PO PRN (02:05)
[2017-04-29] MEDS ORDERED: SODIUM CHLORIDE 0.9% INJ PRN (04:08)
[2017-04-29] MEDS ORDERED: TYLENOL PO PRN (04:08)
[2017-04-29] MEDS: NS 1,000 ML IV SCH ×2 (04:30→18:24)
--- NOTE | 2017-04-29 06:14 | HISTORY AND PHYSICAL ---
CHIEF COMPLAINT: Nausea, vomiting and abdominal pain. HISTORY OF PRESENT ILLNESS: Ms. Nicolas is a 47-year-old female with a history of coronary artery disease status post quadruple bypass, hypothyroidism, GERD and gout, who has recently apparently been diagnosed by Dr. Mccarty for a colonic stricture. At any rate, she has had nausea and vomiting for 4 weeks. She has not been able to have any bowel movements at and has been drinking laxatives and was sent over by Dr. Mccarty. A CT scan showed the contrast was in the small bowel. On exam, most of her tenderness was in the right upper quadrant. She denied any chest pain or dysuria. The CT of the abdomen showed splenomegaly. She will be admitted for further evaluation with a consultation by Dr. Mccarty. PAST MEDICAL HISTORY: 1. Hypothyroidism. 2. GERD. 3. Gout. 4. Coronary artery disease status post non-STEMI with quadruple bypass. 5. Questionable colonic stricture. PREVIOUS SURGICAL HISTORY: 1. Quadruple bypass. 2. Cholecystectomy. 3. Hysterectomy. 4. Colonoscopy. 5. Endoscopy. 6. Bladder sling. ALLERGIES: Cipro, Biaxin, codeine, hydrocodone, Levaquin, penicillin, sulfa and morphine, all causing nausea and vomiting. Also allergic to egg derivative, causing nausea and vomiting. HOME MEDICATIONS: 1. Synthroid 75 mcg daily. 2. Phenergan 1-2 25 mg tablets q.6 hours. 3. Allopurinol. 4. Aspirin 325 mg daily. 5. Atorvastatin 40 mg daily. 6. Zyrtec. 7. Vitamin D3 2000 units daily. 8. Klonopin 0.5 mg p.o. daily p.r.n. 9. Plavix 75 mg p.o. daily. 10. Vitamin B12. FAMILY HISTORY: Multiple first-degree relatives with coronary artery disease and early of her mother and, I believe, grandfather from [place] in their 50s. SOCIAL HISTORY: Lives at home with family. Extensive smoking history. Has attempted to cut back and is using E cigarettes. No alcohol or illicit drug use. REVIEW OF SYSTEMS: Fourteen point review of systems conducted with the patient. Pertinent positives listed above in the HPI. All other systems reviewed and found to be negative. PHYSICAL EXAMINATION: VITAL SIGNS: Temperature 98.3 degrees, pulse 84, respirations 15, blood pressure 122/83, oxygen saturation 100% on room air. GENERAL: Anxious 47-year-old female, lying in the ER stretcher. Able to answer all questions appropriately. In no acute distress. HEENT: Head is atraumatic, normocephalic. Pupils equal, round, reactive to light. Extraocular eye movement intact. Sclerae are anicteric. Conjunctivae are pink. Oral mucosa is moist. NECK: Supple. No JVD. No thyromegaly. Trachea is midline. No cervical lymphadenopathy. CARDIAC: S1-S2 appreciated. No murmurs, gallops, rubs. LUNGS: Clear to auscultation bilaterally. No rhonchi, wheezes or rales. ABDOMEN: Protuberant soft, nondistended, nontender. Bowel sounds hyperactive in all 4 quadrants. No pulsatile mass. No organomegaly. EXTREMITIES: No clubbing, cyanosis, or edema. NEUROLOGICAL: Alert and orient x3. Cranial nerves 2-12 grossly intact. GENITOURINARY: Patient voids, otherwise deferred. DIAGNOSTIC DATA: CT of the abdomen showed splenomegaly. Apparently most of the contrast that was drunk seems to be in the small bowel. LABORATORY DATA: CBC within normal limits. Chemistry panel within normal limits. Urine trace protein, greater than 10 epithelial cells, 1+ bacteria. ASSESSMENT AND PLAN: 1. Intractable nausea and vomiting with questionable colonic stricture. Plan: Admit patient to the medical floor. Consult Dr. Mccarty. We will give Protonix 40 mg IV q.12 hours. Phenergan as needed for nausea and vomiting. Hold patient NPO. Normal saline at 75 mL an hour. 2. Abdominal pain secondary to #1. The patient did not have a huge complaint of pain at this time and is allergic to most all pain medications. [facility] if she does start having pain medication. Will not place on the medication reconciliation form at this time due to its cost. We will wait for the patient to have a formal complaint of pain. We will treat any type of fever or minor aches and pains with oral Tylenol which has been added to the medication reconciliation form. 3. History of coronary artery disease status post quadruple bypass. Continue aspirin and Plavix. 4. Hypothyroidism. Continue Synthroid. Check TSH level. 5. Tobacco use and abuse. Smoking cessation was gone over with the patient. She is trying to quit. 6. Hyperlipidemia. Continue atorvastatin 40 mg p.o. daily. 7. Further recommendations per patient clinical course. Dictated by THUAN Martino for Niko Buck MD Seen,examined and discussed case with [employer] [employer]. cc: THUAN Martino MD Manish Arora, MD [facility]
--- NOTE | 2017-04-29 07:26 | Diag Imaging Result Doc PS360 ---
CT ABDOMEN/PELVIS W/O CONTRAST - 04/28/2017 INDICATION: vomiting TECHNIQUE: A CT dose reduction protocol was used. COMPARISON: 05/07/2016 FINDINGS: The lung bases are clear and the heart size is normal. There are new sternotomy changes. Stable cholecystectomy changes and benign dilation of the common bile duct. There is some hyperdense excreted material throughout the renal collecting system suggesting a recent contrast administration. No hydronephrosis or hydroureter. No definite radiodense renal stones. Numerous stable sigmoid colon diverticula. No bowel obstruction or inflammation. Uterus is absent. Urinary bladder and rectum are normal. Bony structures are intact. IMPRESSION: No acute disease or significant change from prior. Diverticulosis coli. Electronically signed by Jameel Franco 04/29/2017 7:24 AM
[2017-04-29] MEDS: SODIUM CHLORIDE 0.9% INJ SCH (08:35)
[2017-04-29] MEDS: PHENERGAN IV PRN ×2 (08:35→20:22)
[2017-04-29] MEDS: VITAMIN D PO SCH (09:48)
[2017-04-29] MEDS: ZYLOPRIM PO SCH (09:48)
[2017-04-29] MEDS: ASPIRIN EC PO SCH (09:48)
[2017-04-29] MEDS: ZYRTEC PO SCH (09:48)
[2017-04-29] MEDS: VITAMIN B-12 SL SCH (09:49)
[2017-04-29] MEDS: PLAVIX PO SCH (09:49)
[2017-04-29] MEDS: SYNTHROID PO SCH (09:49)
--- NOTE | 2017-04-29 11:00 | Diag Imaging Result Doc PS360 ---
EXAM: ABDOMEN FLAT/UPRIGHT HISTORY: abd pain, N/V TECHNIQUE: Three views COMPARISON: 04/28/2017 FINDINGS: There is contrast throughout the colon. There are scattered diverticula. The bowel loops are not dilated. The gallbladder has been removed. No organomegaly. There are multiple pelvic phleboliths. No free air beneath the diaphragm. IMPRESSION: 1.Cholecystectomy 2.Diverticulosis Electronically signed by Rick Villarreal 04/29/2017 10:57 AM
[2017-04-29] MEDS: PROTONIX IV SCH ×2 (17:03→20:25)
[2017-04-29] MEDS: LOVENOX SUBQ SCH (17:03)
[2017-04-29] MEDS: LIPITOR PO SCH (20:25)
--- NOTE | 2017-04-30 03:28 | CONSULTATION ---
DATE OF CONSULTATION: 04/29/2017 REASON FOR CONSULTATION: Sigmoid stricture. HISTORY OF PRESENT ILLNESS: This is a 47-year-old female who was admitted today for symptoms of abdominal pain, bloating, nausea, vomiting, and difficulty having bowel movements. She has a long history of difficulty with bowel movements, going all the way back to her infant or toddler years, when she used to get frequent enemas. She describes to me frequent episodes of going a week or more as a child between bowel movements. Over her adult life things, have worsened. She has been taking multiple stool softeners and laxatives for several years. When she misses, she has crampy abdominal pain, bloating, nausea, and vomiting. She underwent a colonoscopy in [place] a few years ago, and was told she had a stricture in her colon, that per that doctor was due to "scar tissue from previous surgeries." She was placed on more stool softeners and laxatives, and surgery was deferred at that time. Since that time, she has had a quadruple bypass surgery earlier this year. Her constipation has been worsening over the summer. She was sent to see Dr. Mccarty, who performed a colonoscopy on 04/18/2017, and was told again that she had a sigmoid stricture. She asked to be referred to a surgeon in [place], so she could be closer to her heart doctor. There, she underwent a barium enema, which showed no sign of a stricture or colon obstruction. In any case, she was admitted today for ongoing symptoms of nausea, vomiting, abdominal pain, and constipation. I was consulted for evaluation. Here, she has had plain x-rays of her abdomen and CT scan of her abdomen, none of which show any small or large bowel obstruction. PAST MEDICAL HISTORY: Hypothyroidism, gastroesophageal reflux disease, gout, coronary artery disease, chronic constipation. PAST SURGICAL HISTORY: Coronary artery bypass grafting, laparoscopic cholecystectomy, vaginal hysterectomy, bilateral tubal ligation, bladder sling. ALLERGIES: The patient states that she has many medicines to which she is sensitive to. She describes her real symptom as nausea and vomiting. These include Cipro, Biaxin, codeine, hydrocodone, Levaquin, penicillin, sulfa, and morphine. HOME MEDICATIONS: Synthroid, Phenergan, allopurinol, aspirin, atorvastatin, Zyrtec, vitamin D3, Klonopin, Plavix, and vitamin B12. FAMILY HISTORY: Coronary artery disease. SOCIAL HISTORY: She does smoke. No alcohol or illicit drug use. REVIEW OF SYSTEMS: Ten systems reviewed and negative, except as noted above. PHYSICAL EXAMINATION: Vital Signs: Temperature 98.5 degrees, pulse 84, blood pressure 127/93, O2 saturation 100%. General: Well-developed, well-nourished female, in no distress, who looks her stated age. HEENT: Normocephalic, atraumatic. Extraocular muscles intact. Pupils equal, round, reactive to light. Sclerae anicteric. Moist mucous membranes. Hearing grossly normal. No oral lesions. Neck: Supple. No thyromegaly. Cardiovascular: Regular rate and rhythm. Respiratory: Bilateral equal breath sounds. No work of breathing. Gastrointestinal: Soft, nondistended. No organomegaly or mass. No hernia. She has well-healed laparoscopic incisions. She is tender diffusely, without rebound or guarding. Extremities: No clubbing, cyanosis, or edema. Skin: Warm and dry. No rash. Musculoskeletal: Moves all extremities equally and well. LABORATORY STUDIES: White blood cell count 9.7, hemoglobin 12.8, platelet count 285,000. Sodium 144, potassium 4.1, chloride 103, CO2 of 29, BUN 7, creatinine 0.7, glucose 85. Liver function tests normal. Amylase and lipase normal. Urinalysis unremarkable. IMAGING STUDIES: As described above in HPI. ASSESSMENT AND PLAN: A 47-year-old female with chronic constipation and questionable colonic stricture. This is a confusing picture, with normal radiography, but abnormal colonoscopy. I will discuss with Dr. Mccarty. We may need to consider repeat studies such as barium enema, or other investigations, including defecography, a stool transit study, anorectal manometry, etc. I will discuss with Dr. Mccarty tomorrow. cc: Brenden Osman MD
[2017-04-30] MEDS: SYNTHROID PO SCH (06:15)
[2017-04-30 06:27] LABS: MANUAL DIFF NEEDED? NO
[2017-04-30 06:31] LABS: BASO% 0.3 % (0.0-0.8); EOS# 0.14 X1000 (0.0-0.7); EOS% 1.9 % (0.0-10.0); HEMATOCRIT 38.3 % (37.0-47.0); HEMOGLOBIN 12.8 g/dL (12.0-16.0); LYMPH# 2.72 X1000 (1.2-3.4); LYMPH% 36.1 % (20.5-51.1); MCH 28.3 PG (27-31); MCHC 33.4 g/dL (33-37); MCV 84.7 FL (81-99); MONO# 0.47 X1000 (0.11-0.59); MONO% 6.2 % (1.7-9.3); MPV 10.2 FL (7.4-10.4); NEUT% 55.5 % (42.2-75.2); PLT 257 X1000 (130-400); RBC 4.52 XMIL (4.2-5.4)
[2017-04-30 06:48] LABS: AGAP 12; ALKALINE PHOSPHATASE 78 U/L (32-104); BUN 8 mg/dL (8-22); CALCIUM 8.8 mg/dL (8.8-10.2); CHLORIDE 102 mmol/L (98-107); COSMO 273; GOT 17 U/L (10-30); GPT 13 U/L (10-36); POTASSIUM 3.8 mmol/L (3.5-5.1); SODIUM 138 mmol/L (136-145); TCO2 24 mmol/L (25-35); TOTAL BILIRUBIN 0.47 mg/dL (0.20-1.00); TOTAL PROTEIN 6.9 g/dL (6.3-8.3)
[2017-04-30] MEDS: PLAVIX PO SCH (09:48)
[2017-04-30] MEDS: ASPIRIN EC PO SCH (09:48)
[2017-04-30] MEDS: ZYLOPRIM PO SCH (09:49)
[2017-04-30] MEDS: PROTONIX IV SCH ×2 (09:49→21:47)
[2017-04-30] MEDS: ZYRTEC PO SCH (09:49)
[2017-04-30] MEDS: VITAMIN D PO SCH (09:50)
[2017-04-30] MEDS: VITAMIN B-12 SL SCH (09:50)
[2017-04-30] MEDS: ZOFRAN IV PRN (12:26)
[2017-04-30] MEDS: LOVENOX SUBQ SCH (16:50)
--- NOTE | 2017-04-30 17:03 | PROGRESS NOTE ---
DATE: 04/30/2017 SUBJECTIVE: This patient is not complaining of nausea or vomiting today. No belly pain. Surgery department discussed the case with Dr. Mccarty. They decided to go ahead and get surgery this Friday for the colonic stricture. This patient had recently quadruple bypass and she is requesting some changes on her medications, apparently all of them recommended by a Cardiology outside the hospital. OBJECTIVE: Vital Signs: Temperature 98 degrees, pulse 83, respiratory rate 20, blood pressure 131/79, oxygen saturation 100% on room air. HEENT: Head normocephalic. No trauma. PERRLA. Neck: Supple. No JVD. No masses. Central trachea. Chest: Clear to auscultation. No wheezing. No rales. Abdomen: Soft, nontender, nondistended. No hepatosplenomegaly. Extremities: No edema. No clubbing. No cyanosis. Neurological: The patient is alert and oriented x3. No focal deficits. LABORATORY: WBC 7.5, hemoglobin 12.8, hematocrit 38.3, platelet 257,000. Sodium 138, potassium 3.8, chloride 102, bicarbonate 24, BUN 8, creatinine 0.6, glucose 77, calcium 8.8. ASSESSMENT AND PLAN: 1. Questionable colonic stricture. Surgery Department and Gastroenterology Department discussed about this patient and they decided to go ahead and get surgery done this Friday to treat her colonic stricture. Since this patient has been having multiple cardiac issues, including a quadruple bypass done in November 2016 and also she has been asking for some changes on her medications today, apparently all those changes were recommended by her director of workforce development outside the hospital. I do believe it is better if one of our cardiologists can evaluate this patient and adjust her medication he if we have to. 2. Abdominal pain secondary to #1. This is getting better. Continue with the same management. 3. History of coronary artery disease, status post quadruple bypass. This patient is on aspirin and Plavix and this has to be stopped if this patient is going to have surgery this Friday. 4. Hypothyroidism. Continue with Synthroid. 5. Tobacco use and abuse. This patient has been highly advised against tobacco abuse. Apparently, she is trying to quit. I will continue with daily cessation education. 6. Hyperlipidemia. Continue with statin. cc: Cesar Mcfadden MD
[2017-04-30] MEDS ORDERED: GOLYTELY PO ONE (18:09)
--- NOTE | 2017-04-30 20:54 | CONSULTATION ---
DATE OF CONSULTATION: 04/30/2017 ATTENDING PHYSICIAN: Dr. Mcfadden. PRIMARY CARE DOCTOR: Dr.Faye Rod. PRIMARY SURGEON: Dr. Osman. REASON FOR CONSULTATION: Abdominal pain, constipation, nausea, vomiting. HISTORY OF PRESENT ILLNESS: Ms. Nicolas is a 47-year-old female who has been complaining of abdominal pain, cramping, bloating, nausea, vomiting, worsening constipation for a few months. It had gotten worse over the last few weeks and she had seen me as an outpatient. At that time, we had planned an EGD and colonoscopy. The colonoscopy showed evidence of severe diverticulosis in the left colon, in the rectosigmoid and descending colon area. The colonoscope could not pass that area. Even the EGD scope could not traverse that area because of what appeared to be a kink in the sigmoid. She had seen Dr. Parr at [facility] who had done a barium enema which according the patient was normal. She had a CAT scan done here in the hospital. She was admitted on 04/29/2017 with worsening abdominal pain, distention, nausea, vomiting, decreased p.o. intake, and constipation with minimal relief with laxatives. I saw her in the clinic on 04/28/2017. At that time, I gave her a gallon of GoLYTELY but after drinking the gallon it took her 5 hours to have a bowel movement, which was still very small. She is being followed by Dr. Osman who is planning to perform further workup including consideration for left colon/ sigmoid resection. 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 Prior to this colonoscopy she had a colonoscopy almost 10 years ago when she was told that she had severe diverticulosis as well. Patient denies any vomiting blood or passing blood in the stools. PAST MEDICAL HISTORY: Hypothyroidism, GERD, gout, coronary artery disease, status post non-ST- elevation NM with quadruple bypass, constipation, diverticulosis. PAST SURGICAL HISTORY: Quadruple bypass, cholecystectomy, hysterectomy, colonoscopy, endoscopy, and bladder sling. ALLERGIES: Cipro, Biaxin, codeine, hydrocodone, Levaquin, penicillin, sulfa, morphine caused nausea and vomiting. Allergic egg derivatives, causing nausea and vomiting. MEDICATIONS: At home: 1. Synthroid 75 mg a day. 2. Phenergan 25 mg every 6 hours. 3. Allopurinol. 4. Aspirin 324 mg every day. 5. Atorvastatin 40 mg a day. 6. Zyrtec. 7. Vitamin D3 2000 units daily. 8. Klonopin 0.5 mg p.o. daily as needed. 9. Plavix 75 mg once daily. 10. Vitamin B12. FAMILY HISTORY: Multiple first degree relatives with coronary artery disease and early . SOCIAL HISTORY: Lives at home with family. Extensive smoking history. Has attempted to cut back using E-cigarettes. No alcohol or illicit drug abuse. REVIEW OF SYSTEMS: Denies any current fevers, rigors, chills, chest pain, shortness of breath, or dyspnea at rest. Denies any genitourinary or neurologic complaints. Has a history of anxiety. She also has a history of arthritis and gout. She has history of intermittent nausea and vomiting going on for many months which has gotten worse in the last month or so. She denies any vomiting or passing blood in the stools. She has history of chronic constipation which has gotten worse in the last few months. Denies any neurologic complaints. MEDICATIONS: In the hospital include Tylenol, allopurinol, aspirin, Lipitor, cetirizine, vitamin D3, Klonopin, Plavix, cyanocobalamin, Lovenox, Synthroid, IV normal saline 75 mL /hr., Zofran, pantoprazole IV q.12 hours, MiraLAX 17 g p.o. b.i.d., and Phenergan 12 mg IV q.6 hours. DIET: She is currently on clear liquid diet. PHYSICAL EXAMINATION: Vital signs: Temperature 98 degrees, pulse rate of 83, respiratory rate of 20, blood pressure 131/79, saturating 100% room air. Body weight of 189 pounds 14.4 ounces, BMI of 29 kg/m2. General Appearance: Moderately built, moderately nourished, lying in bed, in no acute distress. HEENT: No pallor. No icterus. Pupils equal and reactive to light and accommodation. Neck: Supple. Chest: Decreased breath sounds. Cardiovascular: Regular rate and rhythm. No murmur. Abdomen: Soft, nontender, nondistended. Bowel sounds present. No guarding or rebound. Extremities: No cyanosis, clubbing. Neurologic: Alert, awake, and oriented. LABS: Her hemoglobin and hematocrit are 12.8 and 38.3, white count of 7.54, platelet count of 257,000. Sodium 130, potassium 3.8, chloride 102, bicarb 24, anion 12, BUN of 8 , creatinine 0.6, glucose of 77, calcium is 8.8, total bilirubin is 0.47, AST 17, ALT 13, alkaline phosphatase 78, total protein 6, albumin of 4. Amylase of 21, lipase of 15. TSH 0.59. Urinalysis showing trace protein and epithelial cells. CT scan of the abdomen and pelvis done on 04/28/2017 showed: 1. Stable cholecystectomy changes and benign dilation of the common bile duct. 2. New sternotomy changes. 3. Hyperdense extruded material throughout the renal collecting system suggesting recent contrast use. 4. Numerous stable sigmoid colon diverticula. 5. Uterus is absent. Urinary bladder and rectum are normal. Abdominal x-ray done on 04/27/2017. There is contrast throughout the colon. There are scattered diverticula. The bowel loops are not dilated. The gallbladder is removed. There are multiple pelvic phleboliths. No free air underneath the diaphragm. X-ray on 04/28/2017 showed no acute abnormality. CT scan in 2016 had evidence of Diverticulitis. IMPRESSION: Abdominal pain, distention, bloating, nausea, vomiting, and worsening constipation going off and on for many months, worse in the last 4 weeks, causing dehydration and admission to the hospital. Recent colonoscopy showing inability of passage of the EGD and colonoscope through the rectosigmoid region raising a question of possible sigmoid stricture from chronic recurrent diverticulitis. Her last episode diverticulitis was in 2016, documented on CT scan. She has had multiple abdominal surgeries in the form of hysterectomy, cholecystectomy, bladder sling. These may also contribute to her scarring in the rectosigmoid region. On top of that , she did have a history of chronic constipation since childhood which could have contributed to colonic inertia and her dependence on laxatives. But now despite being on laxatives, her bowels have not been able to empty and she was admitted 2 days ago with intractable nausea vomiting and abdominal pain and worsening constipation. RECOMMENDATIONS: 1. The patient will be on a clear liquid diet for now. 2. I have discussed her case with Dr. Osman. Dr. Osman will decide whether he wants to pursue left-sided colon resection versus sigmoid resection. 3. We will keep her on MiraLAX 17 g p.o. b.i.d. 4. We will keep her on GI prophylaxis. 5. If surgery is to be planned during this admission, her aspirin and Plavix may have to be withheld. This may need clearance from the cardiology team. 6. I will follow along. I discussed the plan of care with the patient and family and all questions answered. cc: MD Brenden Guzman MD Luis N. Villanueva, MD MTDD
[2017-04-30] MEDS: MIRALAX PO SCH (21:47)
[2017-04-30] MEDS: KLONOPIN PO PRN (21:48)
[2017-04-30] MEDS: LIPITOR PO SCH (21:48)
[2017-05-01] MEDS: PHENERGAN IV PRN
[2017-05-01] MEDS: SYNTHROID PO SCH (06:10)
--- NOTE | 2017-05-01 06:15 | EKG Report ---
Test Performed on : 05/01/2017 05:25:25 AM Test Reason : preoperative evaluation Blood Pressure : / mmHG Vent. Rate : 062 BPM Atrial Rate : 062 BPM P-R Int : 136 ms QRS Dur : 086 ms QT Int : 436 ms P-R-T Axes : 052 068 099 degrees QTc Int : 442 ms Normal sinus rhythm. Normal ECG When compared with ECG of 02-NOV-2016 16:19, T wave inversion now evident in high-lateral leads [address] and T wave abnormality V1-V2 Confirmed by Adryan Arteaga DO ([id number]) on 05/04/2017 4:27:09 PM
--- NOTE | 2017-05-01 08:03 | CONSULTATION ---
DATE OF CONSULTATION: 04/30/2017 REQUESTING PHYSICIAN: Hospitalist kade and Dr. Osman. REASON FOR CONSULTATION: Preoperative cardiac evaluation, coronary heart disease, noncardiac surgery. HISTORY: Mrs. Nicolas is a 47-year-old female who presented to the emergency room department at about 8:30 p.m. on April 28 with complaints of abdominal obstipation, bloating, and some nausea. The patient was evaluated by Dr. Mccarty from GI, and they had diagnosed a colonic stricture. She was seen by Dr. Osman from General Surgery who feels the patient indeed has a colonic stricture, and surgery has been anticipated. PAST MEDICAL HISTORY: The patient's past history is positive for coronary heart disease. She suffered a [id number] myocardial infarction in October of 2016, was sent to [facility] where they ended up performing a multivessel coronary bypass procedure. She has gastric reflux. She has chronic constipation, hypothyroidism, gout. SURGICAL HISTORY: In addition to the bypass, includes cholecystectomy, vaginal hysterectomy, bilateral tubal ligation. The patient has been followed at the [facility] by Dr. Ayers, and the last time she was seen in December of this year, she reported no discomfort in the chest. She appeared to be intolerant to beta-blockers. The patient has a history of asthma and also empty sella syndrome. SOCIAL HISTORY: She is living with a boyfriend now. She has had a total of 5 children and several grandchildren. She quit smoking about a year ago. FAMILY HISTORY: Positive for coronary heart disease in mother. Both parents have . Of note, her surgical procedure performed by Graham Hughes on 11/03/2016 included a left internal mammary artery to LAD, a vein graft to distal obtuse marginal, and a vein graft to the posterior descending branch of the right coronary artery. The patient had very diffuse coronary artery disease in the opinion of Dr. Hughes. She was somebody that might not be able to tolerate a second surgical revascularization procedure in the future due to the diffuseness of her disease. HOME MEDICATIONS: At this time included tramadol, promethazine, levothyroxine, clopidogrel, aspirin, atorvastatin 40 mg daily, allopurinol 600 daily, clonazepam, and Vitamin D3. ALLERGIES: Included ciprofloxacin, Biaxin, codeine, hydrocodone, penicillin, and sulfa drugs. She is also allergic to egg. REVIEW OF SYSTEMS: Beyond what I have reported in the HPI is noncontributory. PHYSICAL EXAMINATION: Vital signs: Blood pressure 131/81, temperature 98 degrees, pulse 79, respirations 18. General: She is awake, alert, oriented, in no distress. HEENT: Unremarkable. Chest: Clear to auscultation and percussion. Cardiac: Heart sounds regular and rhythmic, no gallop or murmur. Abdomen: Obese, slightly distended, nontender, slightly tender at the level of the left flank. No hepatomegaly is noted. Extremities: Good pulses, no peripheral edema. Neurological: She moves four extremities, follows commands, has no real deficit. BLOOD WORK: Sodium 138, potassium 3.8, BUN 8, creatinine 0.6. Liver function tests normal. TSH is normal. Hemoglobin, white count, platelet count are normal. Urine analysis unremarkable. IMAGING: Abdominal x-ray done on April 28 showed no acute abnormalities. The chest x-ray showed well-expanded lungs, no cardiomegaly, no pneumonia. EKG: Her EKG has not been done during this admission. We will request one. IMPRESSION: 1. Patient who appears to have stable coronary artery disease pattern of symptoms. She is s/p CABG less than 6 months ago. She appears to be functional class I of the [employer]. The patient actively participates in sports on a regular basis. 2. Colonic stricture. 3. History of gout. 4. History of sleep apnea syndrome in the past which is not bad enough to require a CPAP system. 5. History of hypothyroidism. 6. Former smoker. RECOMMENDATION: From a cardiology viewpoint, the patient may proceed with noncardiac surgery at a low risk of perioperative cardiac events. She has already discontinued aspirin and Plavix. She should resume those medications after the surgery whenever the surgical team deems that the risk of perioperative bleeding will be very low. We would be very happy to provide assistance in case of an unexpected cardiac situation. At this point in time, we will make ourselves available should our help be required. Thank you again. cc: Roger Campo MD [facility]
[2017-05-01] MEDS: PROTONIX IV SCH ×2 (08:44→21:33)
[2017-05-01] MEDS: ZYRTEC PO SCH (08:44)
[2017-05-01] MEDS: ZYLOPRIM PO SCH (08:44)
[2017-05-01] MEDS: VITAMIN D PO SCH (08:44)
[2017-05-01] MEDS: VITAMIN B-12 SL SCH (08:44)
[2017-05-01] MEDS: SODIUM CHLORIDE 0.9% INJ SCH (08:44)
[2017-05-01] MEDS: MIRALAX PO SCH ×2 (09:00→22:20)
--- NOTE | 2017-05-01 11:10 | PROGRESS NOTE ---
DATE: 05/01/2017 SUBJECTIVE: This patient is not complaining of nausea or vomiting today. No belly pain. Surgery Department discussed the case with Dr. Mccarty and they decided to go ahead and go to the OR tomorrow. Cardiology Department has seen the patient and at this point she is okay to go to the OR with this low risk surgery. OBJECTIVE: Vital Signs: Temperature 98.7 degrees, pulse 75, respiratory rate 16, blood pressure 138/91, O2 saturation 95% on room air. HEENT: Head normocephalic. No trauma. PERRLA. Neck: Supple. No JVD. No masses. Central trachea. Chest: Clear to auscultation. No wheezing. No rales. She has a midline chest scar at the level of the sternum that looks healed. Abdomen: Soft, nontender, nondistended. No hepatosplenomegaly. Extremities: No edema. No clubbing. No cyanosis. Neurological: The patient is alert and oriented x3. No focal deficits. LABORATORY: No lab work done today. ASSESSMENT AND PLAN: 1. Colonic stricture. She will have surgery tomorrow. Probably they will remove this part of the colon or the sigmoid. She will be NPO after midnight, aspirin and Plavix have been held. We will continue to monitor this patient closely. 2. Abdominal pain secondary to #1. This is better. 3. History of coronary artery disease status post quadruple bypass stable. This patient has been evaluated for Cardiology Department. 4. Hypothyroidism. Continue with Synthroid. 5. Tobacco use and abuse. This patient has been highly advised against tobacco abuse. Apparently she is trying to quit. I will continue with daily cessation education. 6. Hyperlipidemia. Continue with statin. cc: Cesar Mcfadden MD
[2017-05-01] MEDS: FLAGYL PO SCH ×2 (11:25→22:18)
[2017-05-01] MEDS: KLONOPIN PO PRN ×2 (11:27→22:18)
[2017-05-01] MEDS: ZOFRAN IV PRN (17:48)
--- NOTE | 2017-05-01 18:02 | PROGRESS NOTE ---
DATE: 05/01/2017 SUBJECTIVE: Patient is resting in bed. She denies any new complaints. She denies fever or chills. She is keeping her liquid diet well. She denies any nausea or vomiting today. She had 6 bowel movements today. She is getting ready for surgery tomorrow with Dr. Osman. OBJECTIVE: Vital Signs: Temperature 98.5 degrees, pulse of 77, respiratory rate 18, blood pressure 118/79, saturating 98% on room air. General Appearance: Moderately nourished, lying in bed, in no acute distress. HEENT: No pallor. No icterus. Neck: Supple. Abdomen: Soft, nontender, nondistended. Bowel sounds are present. No guarding. No rebound. Extremities: No cyanosis, clubbing, or edema. Neurologic: She is alert, awake, oriented. LABS: Hemoglobin and hematocrit is 12.8 and 38.3, white count of 7.5, platelet count of 257,000. Sodium 130, potassium 3.8, chloride 102, bicarbonate 24, anion gap 12, BUN 8, creatinine 0.6, glucose of 77, calcium is 8.8, total bilirubin is 0.47, AST 17, ALT 13, alkaline phosphatase 78, total protein 6.9, lipase of 15, amylase of 21, TSH 0.59. IMPRESSION/PLAN: 1. Colonic stricture in the left colon/sigmoid colon. She is getting ready for surgery tomorrow with Dr. Osman. She is on clear liquid diet. She will be NPO past midnight. Her aspirin and Plavix are withheld. 2. Gastrointestinal prophylaxis: PPI. 3. History of coronary disease status post quadruple bypass currently stable and followed by Dr. Campo. 4. Hypothyroidism. Continue Synthroid. 5. Nausea, vomiting, abdominal pain improved since being on laxatives and clear liquid diet for now. 6. Patient was counseled to quit tobacco. 7. The above plan was discussed with the patient, Dr. Ricardo and Dr. Osman. cc: Macho Mccarty MD [facility]
--- NOTE | 2017-05-01 18:55 | PROGRESS NOTE ---
DATE: 05/01/2017 SUBJECTIVE: The patient has no new complaints. She continues to have some nausea. She has taken in about half of her GoLYTELY and has had about 6 liquid bowel movements a day. OBJECTIVE: Vital signs: She is afebrile. Vital signs are stable. General: She is alert and oriented x4. No acute distress. GI: Soft, nontender, nondistended. No organomegaly or mass. ASSESSMENT AND PLAN: A 47-year-old female with chronic colon stricture in the rectosigmoid area and a history of severe diverticulosis. We are planning open sigmoidectomy tomorrow. We answered her questions. cc: Brenden Osman MD
[2017-05-01] MEDS: LIPITOR PO SCH (22:18)
[2017-05-02] MEDS: FLAGYL PO SCH ×3 (04:46→22:17)
[2017-05-02 05:41] LABS: MANUAL DIFF NEEDED? NO
[2017-05-02 05:47] LABS: BASO% 0.2 % (0.0-0.8); EOS# 0.24 X1000 (0.0-0.7); EOS% 3.6 % (0.0-10.0); HEMATOCRIT 34.5 % (37.0-47.0); HEMOGLOBIN 11.5 g/dL (12.0-16.0); IMM GRAN# 0.02 X1000 (0.0-0.04); IMM GRAN% 0.3 % (0.0-0.5); LYMPH# 2.49 X1000 (1.2-3.4); LYMPH% 37.6 % (20.5-51.1); MCH 28.6 PG (27-31); MCHC 33.3 g/dL (33-37); MCV 85.8 FL (81-99); MONO# 0.47 X1000 (0.11-0.59); MONO% 7.1 % (1.7-9.3); MPV 10.2 FL (7.4-10.4); NEUT% 51.2 % (42.2-75.2); PLT 229 X1000 (130-400); RBC 4.02 XMIL (4.2-5.4)
[2017-05-02 05:55] LABS: INR 1.04; PROTIME 10.9 Seconds (9.2-11.7); PTT 25.9 Seconds (22.0-36.0)
[2017-05-02 06:00] LABS: AGAP 15; BUN 6 mg/dL (8-22); CALCIUM 8.6 mg/dL (8.8-10.2); CHLORIDE 105 mmol/L (98-107); COSMO 285; POTASSIUM 3.6 mmol/L (3.5-5.1); SODIUM 145 mmol/L (136-145); TCO2 25 mmol/L (25-35)
[2017-05-02] MEDS: SYNTHROID PO SCH (06:33)
[2017-05-02] MEDS ORDERED: XYLOCAINE-MPF 2% ONE ×2 (09:38→09:39)
[2017-05-02] MEDS ORDERED: NORCURON ONE ×2 (09:39→12:13)
[2017-05-02] MEDS ORDERED: QUELICIN (DOSE) ONE (09:39)
[2017-05-02] MEDS ORDERED: DIPRIVAN 1% ONE (09:39)
[2017-05-02] MEDS ORDERED: VERSED ONE ×2 (09:40→09:59)
[2017-05-02] MEDS ORDERED: FENTANYL ONE (09:40)
[2017-05-02] MEDS ORDERED: INVANZ 1 GM/NS 1 GM/50 ML IVPB ONE (09:41)
[2017-05-02] MEDS ORDERED: SODIUM CHLORIDE 0.9% 10 ML ONE ×3 (09:47→12:13)
[2017-05-02] MEDS ORDERED: MARCAINE 0.25% PF ONE (09:48)
[2017-05-02] MEDS ORDERED: EXPAREL 1.3% ONE (09:49)
[2017-05-02] MEDS ORDERED: EPHEDRINE ONE (11:15)
[2017-05-02] MEDS ORDERED: ZOFRAN ONE (11:25)
[2017-05-02] MEDS ORDERED: DECADRON ONE (11:25)
[2017-05-02 11:28] LABS: URINE MICRO REVIEW NEEDED? NO; URINE SOURCE CATH
[2017-05-02 11:32] LABS: BILIRUBIN URINE NEGATIVE (NEGATIVE); BLOOD URINE NEGATIVE (NEGATIVE); COLOR YELLOW; GLUCOSE URINE NEGATIVE (NEGATIVE); LEUKOCYTES URINE NEGATIVE (NEGATIVE); NITRITE URINE NEGATIVE (NEGATIVE); PROTEIN URINE NEGATIVE (NEGATIVE); SP GRAVITY URINE 1.011; TURBIDITY URINE CLEAR (CLEAR); UROBILINOGEN URINE NORMAL (NORMAL)
[2017-05-02 11:33] LABS: UR EPITHELIAL CELLS <10 /HPF (<10); URINE BACTERIA NEGATIVE /HPF; URINE RBC <10 /HPF (<10); URINE WBC <10 /HPF (<10)
[2017-05-02] MEDS ORDERED: OFIRMEV 1000 MG/ISOTONIC SOLN 1,000 MG/100 ML BOTTLE ONE (11:33)
[2017-05-02] MEDS ORDERED: LABETALOL ONE (11:55)
[2017-05-02] MEDS ORDERED: INVANZ 1 GM/NS 1 GM/50 ML IVPB IV ONE (12:00)
[2017-05-02] MEDS ORDERED: ROBINUL ONE (13:03)
[2017-05-02] MEDS ORDERED: NEOSTIGMINE ONE (13:03)
[2017-05-02] MEDS: DILAUDID ONE ×4 (13:41→14:15)
[2017-05-02] MEDS: ZOFRAN IV PRN (15:09)
[2017-05-02] MEDS: NS 1,000 ML IV SCH (15:10)
[2017-05-02] MEDS: MIRALAX PO SCH ×3 (15:10→22:22)
[2017-05-02] MEDS: VITAMIN B-12 SL SCH (15:11)
[2017-05-02] MEDS: ZYRTEC PO SCH (15:11)
[2017-05-02] MEDS: ZYLOPRIM PO SCH (15:11)
[2017-05-02] MEDS: VITAMIN D PO SCH (15:11)
[2017-05-02] MEDS: PROTONIX IV SCH ×2 (15:13→22:16)
--- NOTE | 2017-05-02 15:23 | OPERATIVE NOTE ---
PROCEDURE DATE: 05/02/2017 PREOPERATIVE DIAGNOSIS: Colon stricture. POSTOPERATIVE DIAGNOSIS: Colon stricture. PROCEDURE: Open low anterior colon resection. SURGEON: Dr. Brenden Osman. MICROBIOLOGY TECHNICIAN: Dr. August Santana. ANESTHESIA: General. ESTIMATED BLOOD LOSS: 50 mL. COMPLICATIONS: None apparent. SPECIMENS: Sigmoid colon and portion of rectum. FINDINGS: The distal sigmoid and proximal rectum were chronically indurated and strictured appearing and they were adhesed to each other performing a severe S shaped loop. The remaining portions of the descending, transverse and ascending colon were normal. The small bowel appeared normal. TECHNIQUE: The patient was brought to the operating room and placed supine on the table. General anesthesia was induced. A Galan catheter was placed. She was placed in stirrups. She was appropriately padded. She was then prepped and draped in usual sterile fashion. A midline incision was made from above the umbilicus down to the symphysis pubis. Dissection was carried out sharply with a knife and cautery through the fascia. The peritoneum was opened sharply between hemostats and met scissors. The peritoneum and fascia were then completely opened up throughout the length of our incision with cautery being careful to protect the underlying bowel. The omentum had a couple of adhesions down into the pelvis which were released with scissors and cautery. Then the omentum and transverse colon were examined. The ascending colon, and descending colon were examined. They all appeared normal. Small bowel appeared normal. I then placed a Bookwalter retractor and packed the small bowel and transverse colon up into the upper abdomen. The sigmoid colon was found to be inflamed and adhesed upon the rectum as described above in the findings section. I began by incising the lateral peritoneal attachments on the left side. I detached it from adhesions to the ovary and fallopian tube. This was done with cautery. I then found the left ureter and safely stayed away from it throughout our dissection. I carried the peritoneal incision down the lateral wall of the left mesorectum down to near the peritoneal reflection. I then lifted it up and incised the peritoneum on the right side and found the ureter on the right side. We safely stayed away from it during our dissection. The peritoneum was incised in the same fashion with cautery down the right side of the mesorectum to the peritoneal reflection. The adhesions between the S loop of the sigmoid colon and rectum were incised with cautery. I then divided the sigmoid colon at its midpoint where it appeared normal in caliber. This was done with a linear MONI stapler. I then divided the mesentery of the sigmoid colon and rectum with the LigaSure device taking it all way down into the pelvis at the midpoint of the rectum. I then stapled the rectum with a TA stapler and divided it with a knife proximal to this. The specimen was passed off the field. The stapler was removed. The rectal stump was held up with two 2-0 silk at the corners. The proximal sigmoid colon was then examined. It easily reached down to our rectal stump without any tension and it had good blood supply to it. I then excised the staple line and placed a pursestring device with a nylon pursestring suture at the end. The colon was dilated and then a 28 Sizer fit into the sigmoid colon. We placed the anvil of the EEA stapler into the proximal colon and tied down the pursestring device. I cleaned off some of the overlying epiploica and fat to expose the serosa all the way around the anvil. Dr. Santana then came in and passed the EEA stapler up to the rectal stump. He advanced the male end through the staple line of the rectal stump. I brought the anvil down to it and attached to together. He then closed the stapler bringing the anvil into approximation with the stapler and the colon in approximation to the rectum. There was no tension and it was not twisted. He fired the stapler and brought out 2 complete donuts. We then clamped the proximal sigmoid colon and Dr. Santana insufflated the rectum and of the air filled up the rectum and sigmoid colon through the anastomosis. There was no air bubbling out. I had the anastomosis under saline and saw no bubbles. There was one small area anteriorly that even though it was not bubbling I decided to go ahead and over-sew with a Lembert 2-0 silk suture where it looked slightly thin. I then suctioned out the irrigation and removed all laparotomy pads and the Bookwalter retractor. The bowel was placed back into its anatomic position. We changed gloves. I then closed the peritoneum with a running #1 Vicryl and closed the fascia with a running #1 looped Maxon suture. The skin was closed with skin clips. There were no apparent complications. She was awakened in stable condition and transferred to the recovery room. cc: Brenden Osman MD
[2017-05-02] MEDS ORDERED: DILAUDID IV ONE (15:26)
[2017-05-02] MEDS ORDERED: SODIUM CHLORIDE 0.9% INJ PRN (15:36)
[2017-05-02] MEDS ORDERED: ZOFRAN IV PRN ×2 (15:41→15:46)
[2017-05-02] MEDS ORDERED: BENADRYL IV PRN (15:46)
[2017-05-02] MEDS ORDERED: LR 1,000 ML IV SCH (15:46)
[2017-05-02] MEDS ORDERED: DILAUDID PCA VIAL IV PRN (15:46)
[2017-05-02] MEDS ORDERED: NARCAN IV PRN (15:46)
--- NOTE | 2017-05-02 16:06 | PROGRESS NOTE ---
DATE: 05/02/2017 SUBJECTIVE: This patient just came from surgery. She had a colonic stricture, and the surgeon did an open low anterior colon resection. At this moment, she is not complaining of pain. Family members at the bedside. All their questions were answered. OBJECTIVE: Vital Signs: Temperature 97.6, pulse 86, respiratory rate 18, blood pressure 146/87, oxygen saturation 98% on room air. HEENT: Head normocephalic. No trauma. PERRLA. Neck: Supple. No JVD. No masses. Central trachea. Chest: Clear to auscultation. No wheezing. No rales. She has a midline chest scar at the level of the sternal area that looks healed. Abdomen: Soft. At this moment, nontender to palpation. Decreased bowel sounds, she has a clean dressing. Extremities: No edema. No clubbing. No cyanosis. Neurological: The patient is alert and oriented x3. No focal deficits. LABORATORY: WBC 6.6, hemoglobin 11.5, hematocrit 34.5, platelets 229,000. Sodium 145, potassium 3.6, chloride 105, bicarbonate 25, BUN 6, creatinine 0.5, glucose 82, calcium 8.6. ASSESSMENT AND PLAN: 1. Colonic stricture status post open low anterior colon resection, this patient just came from surgery, we will monitor this patient carefully, and we will place this patient on a [employer] pump for pain management. Once she is able to tolerate liquids we will start p.o. medication. 2. Abdominal pain secondary to #1. At this moment, this patient is not complaining of abdominal pain. 3. History of coronary artery disease status post quadruple bypass, stable. 4. Hypothyroidism. This patient has been on Synthroid 75 mcg p.o., but since this patient is not eating or drinking at this moment, I will switch it to IV. 5. Tobacco use and abuse. This patient has been highly advised against tobacco use. I will continue with daily cessation education. 6. Hyperlipidemia. Aware. We will resume her lipid treatment once she is able to drink or eat. cc: Cesar Mcfadden MD
[2017-05-02] MEDS: PHENERGAN IV PRN (16:56)
[2017-05-02] MEDS: PERIDEX MT SCH (21:32)
[2017-05-02] MEDS: SODIUM CHLORIDE 0.9% INJ SCH (22:16)
[2017-05-02] MEDS: OFIRMEV 1000 MG/ISOTONIC SOLN 1,000 MG/100 ML BOTTLE IV SCH (22:16)
[2017-05-02] MEDS: LIPITOR PO SCH (22:17)
[2017-05-03] MEDS: PHENERGAN IV PRN (00:15)
[2017-05-03] MEDS: FLAGYL PO SCH ×4 (02:35→23:02)
[2017-05-03] MEDS: NS 1,000 ML IV SCH ×2 (02:35→03:46)
[2017-05-03] MEDS: OFIRMEV 1000 MG/ISOTONIC SOLN 1,000 MG/100 ML BOTTLE IV SCH ×4 (02:35→23:01)
[2017-05-03 05:57] LABS: HEMATOCRIT 32.3 % (37.0-47.0); HEMOGLOBIN 10.8 g/dL (12.0-16.0); MCH 29.4 PG (27-31); MCHC 33.4 g/dL (33-37); MPV 10.5 FL (7.4-10.4); RBC 3.67 XMIL (4.2-5.4)
[2017-05-03 06:36] LABS: AGAP 12; BUN 5 mg/dL (8-22); CALCIUM 8.9 mg/dL (8.8-10.2); CHLORIDE 104 mmol/L (98-107); COSMO 283; POTASSIUM 4.2 mmol/L (3.5-5.1); SODIUM 144 mmol/L (136-145); TCO2 28 mmol/L (25-35)
[2017-05-03] MEDS: PROTONIX IV SCH ×2 (08:36→23:01)
[2017-05-03] MEDS: SODIUM CHLORIDE 0.9% INJ SCH (08:37)
[2017-05-03] MEDS: VITAMIN D PO SCH (08:37)
[2017-05-03] MEDS: ZYLOPRIM PO SCH (08:38)
[2017-05-03] MEDS: ZYRTEC PO SCH (08:38)
[2017-05-03] MEDS: MIRALAX PO SCH ×2 (08:38→08:42)
[2017-05-03] MEDS: PERIDEX MT SCH ×2 (08:40→23:01)
[2017-05-03] MEDS: VITAMIN B-12 SL SCH (08:48)
[2017-05-03] MEDS: LOVENOX SUBQ SCH (08:49)
[2017-05-03] MEDS: SYNTHROID IV SCH (08:49)
--- NOTE | 2017-05-03 11:26 | PROGRESS NOTE ---
DATE: 05/03/2017 SUBJECTIVE: She feels great. She is not really having anything in the way of pain. She is making multiple laps out in the hallway. She is moving about her room unassisted, voiding without difficulty. No nausea or vomiting. No flatus yet. OBJECTIVE: No fevers. No tachycardia. Pulse 69, blood pressure 102/60, oxygen saturation 100% on room air. Abdomen: Soft. Appropriately tender, really less than I would have expected. Her dressing has some minimal serosanguineous shadowing. DIAGNOSTIC DATA: White count is 11, hematocrit 32. Creatinine 0.6. ASSESSMENT AND PLAN: This is a 47-year-old female status post lower anterior for sigmoid stricture. She is doing great. We will begin advancing her clinically. I have ordered her clear liquids today. Continue out of bed. We decreased her fluids. She is on Lovenox, and I am discussing avoiding narcotics if at all possible to facilitate return of her bowel function. Continue to monitor, but I suspect we will be able to advance her diet and she will progress quickly. cc: Jayme Dawson MD
--- NOTE | 2017-05-03 15:19 | PROGRESS NOTE ---
DATE: 05/02/2017 SUBJECTIVE: The patient had surgery today. She had a rectosigmoid stricture and there is low anterior resection. OBJECTIVE: Vital Signs: Temperature 97.6 degrees, pulse 86, respirations 18, blood pressure 140/80, O2 saturation 98%. HEENT: No scleral icterus. No conjunctival pallor. Neck: Supple. Trachea midline. Heart and Lungs: Normal. Abdomen: Recent surgery wound. LABORATORY DATA: Hemoglobin, hematocrit 11.5 and 34.5. IMPRESSION AND PLAN: 1. Colonic stricture status post low anterior resection. The patient had a very tight stricture and also history of recurrent diverticulitis in the past. 2. Moderate abdominal pain secondary to surgery being treated. 3. History of coronary artery disease stable. 4. Hypothyroid. 5. Tobacco use and abuse. Has been educated. 6. Hyperlipidemia. The patient is stable. I think she will have less problems with her recurrent diverticulitis and rectosigmoid stricture with recent resection. Will follow as needed. cc: Brayden Beckham MD
--- NOTE | 2017-05-03 17:11 | PROGRESS NOTE ---
DATE: 05/03/2017 SUBJECTIVE: This patient is feeling better today. She has been walking. Surgery Department evaluated this patient and they have started this patient on a diet, liquids, and she has been tolerating this. No bowel movements so far. Her bowel sounds are decreased but she is not distended. She is still using the OCCUPATIONAL HYGIENIST pump. Will continue to monitor. OBJECTIVE: Vital signs: Temperature 98.2. Pulse 70. Respiratory rate 20. Blood pressure 108/58. Oxygen saturation 100% on room air. HEENT: Head normocephalic, no trauma. MATTY. Neck: Supple. No JVD. No masses. Central trachea. Chest: Clear to auscultation. No wheezing. No rales. She has a midline chest scar at the level of the sternal area that looks healed. Abdomen: Soft. [id number] tenderness to palpation at the level of the surgical area and left lower quadrant. Decrease bowel sounds. She has a clean dressing. Extremities: No edema, no clubbing, no cyanosis. Neurologic: The patient is alert and oriented x3. No focal neurological deficits. LABORATORY DATA: WBC 11.4, hemoglobin 10.8, hematocrit 32.3, platelets 217. Sodium 144, potassium 4.2, chloride 104, bicarbonate 28, BUN 5, creatinine 0.6, glucose 86, calcium 8.9. ASSESSMENT AND PLAN: 1. Colonic stricture status post open low anterior colon resection. This patient is postoperative day #1. Surgery Department following this patient closely. We have started today this patient on a clear liquid diet. Will continue with the OCCUPATIONAL HYGIENIST pump. She is walking and tolerating p.o. 2. Abdominal pain secondary to #1. Continue with same management. 3. History of coronary artery disease status post quadruple bypass, stable. 4. Hypothyroidism. Continue with Synthroid IV. Once she is able to tolerate p.o. better, I will switch her to p.o. She used to take Synthroid 75 mcg p.o. 5. Tobacco use and abuse. This patient has been advised against tobacco use. I will continue with daily cessation education. 6. Hyperlipidemia. Aware. We will resume her lipid treatment once she is able to eat. cc: Cesar Mcfadden MD
[2017-05-03] MEDS: KLONOPIN PO PRN (22:21)
[2017-05-03] MEDS: LIPITOR PO SCH (23:01)
[2017-05-03] MEDS: COLACE PO SCH (23:40)
[2017-05-04] MEDS: OFIRMEV 1000 MG/ISOTONIC SOLN 1,000 MG/100 ML BOTTLE IV SCH ×4 (02:45→19:33)
[2017-05-04] MEDS: FLAGYL PO SCH ×3 (03:44→19:34)
[2017-05-04] MEDS: NS 1,000 ML IV SCH ×3 (04:49→22:15)
[2017-05-04] MEDS: SYNTHROID IV SCH (06:25)
[2017-05-04] MEDS: PERIDEX MT SCH ×3 (09:12→22:16)
[2017-05-04] MEDS: VITAMIN B-12 SL SCH (09:12)
[2017-05-04] MEDS: ZYRTEC PO SCH (09:13)
[2017-05-04] MEDS: VITAMIN D PO SCH (09:13)
[2017-05-04] MEDS: ZYLOPRIM PO SCH (09:13)
[2017-05-04] MEDS: COLACE PO SCH ×3 (09:13→22:16)
[2017-05-04] MEDS: LOVENOX SUBQ SCH (09:15)
[2017-05-04] MEDS: SODIUM CHLORIDE 0.9% INJ PRN ×3 (09:18→15:35)
[2017-05-04] MEDS: PHENERGAN IV PRN ×3 (09:18→21:39)
[2017-05-04] MEDS: PROTONIX IV SCH ×3 (11:13→22:16)
--- NOTE | 2017-05-04 14:35 | PROGRESS NOTE ---
DATE: 05/04/2017 SUBJECTIVE: Feels little worse today I think she is now kind of out of the postoperative honeymoon. Is having some more the expected symptoms as far as pain, had trouble with IV access last night. She is also belching little bit more. OBJECTIVE: She has no fevers, there was 100.4 recorded last night but this resolved, pulse 69, blood pressure 107/66, O2 saturation 98% on room air. Abdomen soft, appropriately tender. Dressing is in place with stable amount of drainage on the dressing from yesterday. LAB: No new labs. ASSESSMENT AND PLAN: 47-year-old female status post sigmoid colectomy appears to have little bit of an ileus now, I encouraged her go slow with the liquids, continue to ambulate as much possible, keep the CAR INSPECTOR going for pain but I have encouraged her to limit this as much as possible to help resolve her ileus, meantime pulmonary toileting, physical therapy, walking is going to be the main issue. Will continue follow along. cc: Jayme Dawson MD
--- NOTE | 2017-05-04 15:17 | PROGRESS NOTE ---
DATE: 05/04/2017 SUBJECTIVE: This patient is feeling better. She has been walking, for now we will continue with the same pain treatment protocol but I think tomorrow we can stop it and start p.r.n. medication. As per the patient she is not passing gas and no bowel movement so far but she is tolerating p.o. and she does not have abdominal distention. OBJECTIVE: Vital Signs: Temperature 98.5 degrees, pulse 75, respiratory rate 18, blood pressure 110/79, oxygen saturation 96 on room air. HEENT: Head normocephalic. No trauma. PERRLA. Neck: Supple. No JVD. No masses. Central trachea. Chest: Clear to auscultation. No wheezing. No rales. She has a midline chest scar at the level of the sternal area that looks healed. Abdomen: Soft, mild to moderate tenderness to palpation at the level of the surgical area and left lower quadrant. Decreased bowel sounds. She has a clean dressing. Extremities: No edema. No clubbing. No cyanosis. Neurological: The patient is alert and oriented x3. No focal deficits. LABORATORY: WBC 11.4, hemoglobin 10.8, hematocrit 32.3, platelets 217,000. Sodium 144, potassium 4.2, chloride 104, bicarbonate 28, BUN 5, creatinine 0.6, glucose 86, calcium 8.9. ASSESSMENT AND PLAN: 1. Colonic stricture status post open low anterior colon resection postoperative day #2. Surgery Department following this patient closely. She is feeling fine. She is tolerating p.o. and ambulating. Continue with FLAT SPRING ASSEMBLER pump. 2. Abdominal pain secondary to #1. Continue with the same management. 3. History of coronary artery disease status post quadruple bypass, stable. 4. Hypothyroidism. Continue with Synthroid IV. I will switch it to p.o. once this patient is tolerating p.o. better. 5. Tobacco use and abuse. This patient has been highly advised against tobacco use. I will continue with daily cessation education. 6. Hyperlipidemia aware. We will resume her lipid treatment once she is eating better. cc: Cesar Mcfadden MD
[2017-05-04] MEDS: LIPITOR PO SCH ×2 (19:33→22:16)
[2017-05-05] MEDS: OFIRMEV 1000 MG/ISOTONIC SOLN 1,000 MG/100 ML BOTTLE IV SCH (01:27)
[2017-05-05 05:52] LABS: MANUAL DIFF NEEDED? NO
[2017-05-05 05:57] LABS: BASO% 0.4 % (0.0-0.8); EOS# 0.28 X1000 (0.0-0.7); EOS% 3.4 % (0.0-10.0); HEMATOCRIT 32.1 % (37.0-47.0); HEMOGLOBIN 10.7 g/dL (12.0-16.0); IMM GRAN# 0.02 X1000 (0.0-0.04); IMM GRAN% 0.2 % (0.0-0.5); LYMPH% 29.4 % (20.5-51.1); MCH 29.1 PG (27-31); MCHC 33.3 g/dL (33-37); MCV 87.2 FL (81-99); MONO# 0.73 X1000 (0.11-0.59); MONO% 8.9 % (1.7-9.3); MPV 10.3 FL (7.4-10.4); NEUT% 57.7 % (42.2-75.2); PLT 216 X1000 (130-400); RBC 3.68 XMIL (4.2-5.4)
[2017-05-05] MEDS: SYNTHROID IV SCH (06:11)
[2017-05-05] MEDS: PHENERGAN IV PRN (06:11)
[2017-05-05] MEDS: FLAGYL PO SCH (06:11)
[2017-05-05] MEDS: NS 1,000 ML IV SCH ×2 (06:12→22:49)
[2017-05-05] MEDS ORDERED: PHENERGAN IM PRN (08:36)
[2017-05-05] MEDS ORDERED: TYLENOL PO PRN (08:38)
[2017-05-05] MEDS ORDERED: TORADOL PO PRN (08:38)
--- NOTE | 2017-05-05 09:04 | PROGRESS NOTE ---
DATE: 05/05/2017 SUBJECTIVE: The patient has had some nausea that she attributes to Flagyl. She has been a little bloated yesterday. She is sipping on liquids. She has passed a little gas overnight. She has not had severe pain. OBJECTIVE: Vital Signs: She is afebrile. Vital signs are stable. General: She is alert and oriented x4. No acute distress. CV: Regular rate and rhythm. Respiratory: Bilateral equal breath sounds. No work of breathing. Gastrointestinal: Soft, nondistended. Appropriately tender and incisional dressing is dry. She has good bowel sounds. Laboratory: CBC was reviewed and unremarkable. ASSESSMENT AND PLAN: A 47-year-old female postop day 3, low anterior resection. She has a mild ileus. We are going to stop the Flagyl and her narcotic pain medicines, and convert her to Tylenol, Toradol, and Ultram for pain. Hopefully, she will have a little better bowel function and p.o. intake today, and could be ready to go home as early as tomorrow. cc: Brenden Osman MD
[2017-05-05] MEDS: VITAMIN B-12 SL SCH (09:06)
[2017-05-05] MEDS: ZYRTEC PO SCH (09:08)
[2017-05-05] MEDS: LOVENOX SUBQ SCH (09:08)
[2017-05-05] MEDS: ZYLOPRIM PO SCH (09:08)
[2017-05-05] MEDS: VITAMIN D PO SCH (09:08)
[2017-05-05] MEDS: PERIDEX MT SCH ×2 (09:08→22:50)
[2017-05-05] MEDS: COLACE PO SCH ×2 (09:08→22:50)
[2017-05-05] MEDS: ULTRAM PO PRN ×2 (09:57→18:15)
[2017-05-05] MEDS ORDERED: CARAFATE LIQUID PO PRN (10:24)
[2017-05-05] MEDS: PROTONIX IV SCH (12:00)
[2017-05-05] MEDS: SODIUM CHLORIDE 0.9% INJ SCH (12:01)
[2017-05-05] MEDS: ZOFRAN IV PRN ×2 (12:04→19:40)
[2017-05-05] MEDS ORDERED: CARAFATE LIQUID PO SCH (14:00)
--- NOTE | 2017-05-05 14:34 | PROGRESS NOTE ---
DATE: 05/05/2017 SUBJECTIVE: The patient is currently resting in chair. She had surgery with a low anterior resection on 05/02/[address] Osman. She had mild ileus postoperatively. She has some nausea. She felt a little bloated, but is better than yesterday. She is sipping on liquids. She passed some flatus last night. She denies any fevers, rigors, chills. OBJECTIVE: Vital signs: Temperature 98.5, pulse of 83, respiratory rate 18, blood pressure 120/68, saturating 100% on room air. Body weight of 189 pounds 14.4 ounces. General appearance: Moderately nourished, lying in bed, in no acute distress. HEENT: Mild pallor. No icterus. Neck: Supple. Abdomen: Post-surgical midline incision with overlying dressing. Appropriately tender. Extremities: No cyanosis or clubbing. Neurologic: She is alert, awake, oriented. LABORATORIES: Hemoglobin and hematocrit are 10.7 and 32.1, white count of 81,000, platelet count of 216,000, MCV of 87.2. Sodium 140, potassium 4.2. IMPRESSION AND PLAN: 1. Rectosigmoid stricture, requiring low anterior resection by Dr. Osman On 05/02/2017, postoperative day 3. Recovering well. Mild ileus, which is getting better. She has been sipping on liquids. She has passed some flatus overnight. So, we will continue to watch her for now. 2. Her narcotics have been discontinued and she has been put on Tylenol, Toradol and Ultram per the surgical team. 3. We will keep her on gastrointestinal prophylaxis. 4. Her diet has been advanced to full-liquid diet. The post-surgical team will continue to watch. 5. Once the patient is discharged, then she will follow with me as outpatient. At that time, I will plan for a complete colonoscopy in 6 weeks. Her prior colonoscopy 2 weeks ago could not be completed because of the sigmoid stricture where our scope could not pass through. 6. Coronary artery disease, status post coronary artery bypass graft, is currently stable. 7. Tobacco abuse. She has been counseled. 8. She has hypothyroidism and hyperlipidemia, which are being managed by the primary team. 9. Further recommendations pending hospital course. I discussed plan with the patient and with Dr. Osman. cc: MD Paz Guzman MD Jason R. Seale, MD
--- NOTE | 2017-05-05 15:26 | PROGRESS NOTE ---
DATE: 05/05/2017 SUBJECTIVE: This patient states that she is feeling better, no bowel movement so far. As per the patient she is not passing gas but she does not look distended, the pain is controlled. Surgery Department following this patient closely. They have removed the HAIRPIECE STYLIST pump and now she is not on morphine or Dilaudid. We will try to avoid narcotics on this patient to help her with the bowel function. OBJECTIVE: Vital Signs: Temperature 98.1 degrees, pulse 90, respiratory rate 20, blood pressure 131/81, oxygen saturation 100% on room air. HEENT: Head normocephalic. No trauma. PERRLA. Neck: Supple. No JVD. No masses. Central trachea. Chest: Clear to auscultation. No wheezing. No rales. She has a midline chest scar from previous surgery that looks fine, healed. Abdomen: Soft. Tender to palpation around the periwound area. No rebound. Positive bowel sounds. Extremities: No edema. No clubbing. No cyanosis. Neurological Examination: Patient is alert and oriented x3. No focal neurological deficits. LABORATORY: WBC 8.1, hemoglobin 10.7, hematocrit 32.1, platelets 216,000. ASSESSMENT AND PLAN: 1. Colonic stricture status post open low anterior colon resection postoperative day #3. Surgery department following this patient closely. We have stopped her HAIRPIECE STYLIST pump and we will avoid for how narcotics, she is tolerating p.o. and ambulating. 2. Abdominal pain secondary to 1 as above. 3. History of coronary artery disease status post quadruple bypass stable. 4. Hypothyroidism. This patient has been on Synthroid IV, I will switch it to p.o. Synthroid today. 5. Tobacco use and abuse. This patient has been highly advised against tobacco abuse. I will continue with daily cessation education. 6. Hyperlipidemia aware. Upon discharge I will restart her lipid medicine. cc: Cesar Mcfadden MD
[2017-05-05] MEDS: LIPITOR PO SCH (22:50)
[2017-05-06 05:32] LABS: MANUAL DIFF NEEDED? NO
[2017-05-06 05:41] LABS: BASO% 0.3 % (0.0-0.8); EOS# 0.37 X1000 (0.0-0.7); EOS% 4.9 % (0.0-10.0); HEMATOCRIT 29.8 % (37.0-47.0); HEMOGLOBIN 9.8 g/dL (12.0-16.0); IMM GRAN# 0.03 X1000 (0.0-0.04); IMM GRAN% 0.4 % (0.0-0.5); LYMPH# 2.65 X1000 (1.2-3.4); LYMPH% 35.2 % (20.5-51.1); MCH 28.7 PG (27-31); MCHC 32.9 g/dL (33-37); MCV 87.1 FL (81-99); MONO# 0.66 X1000 (0.11-0.59); MONO% 8.8 % (1.7-9.3); MPV 10.4 FL (7.4-10.4); NEUT% 50.4 % (42.2-75.2); PLT 229 X1000 (130-400); RBC 3.42 XMIL (4.2-5.4)
[2017-05-06] MEDS ORDERED: SYNTHROID PO SCH ×2 (07:00)
[2017-05-06] MEDS: NS 1,000 ML IV SCH (08:23)
[2017-05-06] MEDS: VITAMIN D PO SCH (08:59)
[2017-05-06] MEDS: ZYLOPRIM PO SCH (08:59)
[2017-05-06] MEDS: LOVENOX SUBQ SCH (08:59)
[2017-05-06] MEDS: VITAMIN B-12 SL SCH (08:59)
[2017-05-06] MEDS: ZYRTEC PO SCH (08:59)
[2017-05-06] MEDS: COLACE PO SCH (09:00)
[2017-05-06] MEDS: PERIDEX MT SCH (09:00)
[2017-05-06 09:02] LABS: AGAP 9; BUN 7 mg/dL (8-22); CALCIUM 8.2 mg/dL (8.8-10.2); CHLORIDE 105 mmol/L (98-107); COSMO 282; SODIUM 143 mmol/L (136-145); TCO2 29 mmol/L (25-35)
[2017-05-06 11:03] VITALS: BP 90/59
[2017-05-06] MEDS: PROTONIX IV SCH (11:20)
[2017-05-06] MEDS: SODIUM CHLORIDE 0.9% INJ SCH (11:21)
--- NOTE | 2017-05-06 13:45 | PROGRESS NOTE ---
DATE: 05/06/2017 SUBJECTIVE: The patient feels much better. She is eating some and has had several bowel movements. She is walking. Her pain is minimal. OBJECTIVE: Vital Signs: She is afebrile. Vital signs are stable. General: She is alert and oriented x4. No acute distress. CV: Regular rate and rhythm. Respiratory: No work of breathing. GI: Soft, nondistended. Good bowel sounds. Incision is clean, dry, and intact. She is appropriately tender. ASSESSMENT AND PLAN: A 47-year-old female postop day 4 low anterior resection for colonic and rectal stricture and likely chronic diverticulitis. She is doing well. She is to be discharged today. She will follow up with me in a week. cc: Brenden Osman MD
--- NOTE | 2017-05-06 16:01 | DISCHARGE SUMMARY ---
ADMISSION DATE: 04/29/2017 DISCHARGE DATE: 05/06/2017 CONSULTATIONS: 1. Dr. Brenden Osman with General Surgery. 2. Dr. Mccarty with Gastroenterology. PERTINENT PROCEDURES: 1. Abdomen and pelvis CT showed no acute disease or significant change from prior diverticulosis coli. 2. Abdominal x-ray showed cholecystectomy and diverticulosis. 3. Open low-anterior colon resection, performed by Dr. Brenden Osman. DISCHARGE DIAGNOSES: 1. Colonic stricture, status post open lower-anterior colon resection. The patient is tolerating p.o. She is ambulating in the hallways. She is to avoid any narcotics, being discharged home on Toradol and Ultram. 2. Abdominal pain, secondary to #1. 3. History of coronary artery disease, status post quadruple bypass, stable. 4. Hypothyroidism. Continue Synthroid. 5. Tobacco use and abuse. The patient has been educated daily on smoking cessation, as well as the means to quit. 6. Hyperlipidemia. Continue her statin. HOSPITAL COURSE: Ms. Nicolas is a 47-year-old female, who carries a history of coronary artery disease, status post quadruple bypass, hypothyroidism, GERD and gout, recently diagnosed by Dr. Mccarty for a colonic stricture. She has had nausea and vomiting for 4 weeks. She has not been able to have a bowel movement, and has been drinking laxatives and was sent over by Dr. Mccarty. A CT scan showed contrast was in the small bowel. On exam, most of her tenderness was in the right upper quadrant. She was admitted for further evaluation, with a consultation by Dr. Mccarty. She was started on PPIs, antiemetics, IV fluids and held n.p.o. Dr. Osman was also consulted. He discussed the case with Dr. Mccarty. She was cleared for surgery by Cardiology. She underwent a open low-anterior colon resection for colon stricture by Dr. Brenden Osman on . She was initiated on clear liquids. Postop day 1, started early ambulation. Decreased her fluids and voided and started early discussions of avoiding narcotics at all to facilitate the return of her bowel function. They were able to get her off her GREEN INSPECTOR pump. She did develop a little bit of an ileus. Encouraged her to slow down on the liquids, and to continue to ambulate in the hallways. She was transitioned from a GREEN INSPECTOR to Tylenol, Toradol and Ultram for pain only. She was having better bowel function, as well as p.o. intake. She was also passing flatulence and advanced to a full-liquid diet by General Surgery, and is appropriate for discharge home today , to follow up with Dr. Brenden Osman in 10 days. VITAL SIGNS: Temperature is 98.6 degrees, heart rate 80, respirations 18, blood pressure 90/59, O2 is 99% on room air. DISCHARGE DIET: Full-liquid. DISCHARGE MEDICATIONS: 1. Allopurinol 600 mg p.o. daily. 2. Aspirin 325 mg p.o. daily. 3. Lipitor 40 mg p.o. at bedtime. 4. Zyrtec 10 mg p.o. daily. 5. Vitamin D3 at 2000 units p.o. daily. 6. 0.5 mg p.o. b.i.d. p.r.n. 7. Klonopin 0.5 mg p.o. daily p.r.n. 8. Plavix 75 mg p.o. daily. 9. Vitamin B12 at 5000 mcg sublingual daily. 10. Colace 100 mg p.o. b.i.d. 11. Toradol 10 mg p.o. q.6 hours p.r.n. 12. Synthroid 75 mcg p.o. daily. 13. Ultram 50 mg p.o. q.6 hours p.r.n. FOLLOWUP: Ms. Nicolas is being discharged back home. She will follow up with Dr. Brenden Osman in 10 days. She will follow up with her primary care physician, Dr. Paz Rod, in 1 to 2 weeks. She will return to the ED for any worsening of symptoms. Discharge time: 30 minutes I personally evaluated this patient face to face, images and lab work were reviewed, she is doing much better, ambulating, tolerating PO, and it looks like her bowel function is better, this patient needs to stop smoking, she has an strong history of coronary disease, I agree with the assessment and plan for this patient, and can be discharged today, Cesar Pozo MD Dictated by THUAN Dominguez for Cesar Mcfadden MD cc: MD Paz Echeverria MD [facility]
== END 2017-05-06 13:31 | disposition home or self-care (01) ==
LOC: ED 19:24 → 4N 04-29 03:59 → SUATTDRO 04-29 03:59 → 4N 05-02 15:36
PROVIDERS: ATTEND Internal Medicine